=== PATIENT | male | born 1940 | race Caucasian/White ===

== ENCOUNTER 2018-02-15 11:55 | Outpatient (RCR) | payer MEDICARE ==
[~2018-02-15 11:55] MED LIST: ASPI-586 PO; TRAM50TA2 PO; fish oil PO; vitamine D3 PO
== END 2018-05-16 | disposition home or self-care (01) ==
LOC: CARD 11:55
PROVIDERS: ATTEND Internal Medicine Cardiovascular Disease
DX: I45.10 Unspecified right bundle-branch block (principal); I44.4 Left anterior fascicular block; R42 Dizziness and giddiness
CPT/HCPCS: 93225; 93226

== ENCOUNTER 2018-03-09 15:00 | Outpatient (CLI) | payer MEDICARE | END 2018-03-09 15:30 | disposition home or self-care (01) | LOC: SLEEP 15:00 | PROVIDERS: ATTEND Family Medicine | DX: G47.10 Hypersomnia, unspecified (principal); I49.9 Cardiac arrhythmia, unspecified; I10 Essential (primary) hypertension; R06.83 Snoring ==

== ENCOUNTER → 2018-04-07 | Day surgery (SDC) | payer MEDICARE ==
[~2018-04-07] VITALS: Ht 182.9 cm; Wt 95.7 kg
[~2018-04-07] MED LIST changes: +LIDOCAINE 1% INJ 20 ML 20 ML VIAL ONE
[2018-04-07 10:22] VITALS: BP 146/89
--- NOTE | 2018-04-07 11:10 | Implantation of Loop Monitor ---
Implant of Loop Monitior IMPLANTATION OF LOOP MONITOR REPORT DATE OF PROCEDURE: 04/07/18 PREOP DIAGNOSIS: atrial flutter POSTOP DIAGNOSIS: atrial flutter PROCEDURE DETAILS: The patient is a 77 male with history of paroxysmal atrial fibrillation requiring long-term surveillance. Therefore implantable loop recorder was discussed and agreed with the patient. Informed consent was taken. All risks and complications were discussed at length. The patient was draped and prepped in the usual sterile fashion. Local anesthesia was lidocaine, which was given in the substernal area close to the 4th intercostal space. Loop monitor [employer] with serial number [id number] was implanted according to the protocol. Steri-Strips were placed at the end of the procedure. There were no complications and the patient tolerated the procedure well. The device was interrogated with a voltage of. ANESTHESIA: Local anesthesia with lidocaine. COMPLICATIONS: None CONTRAST/FLUOROSCOPY: None CONCLUSION: successful reveal device implantation with no complication FINAL DIAGNOSIS: Chronic atrial flutter Palpitation Dizziness Hypertension MARISOL HARTMANN MD Apr 07, 2018 11:10
--- OUTSIDE RECORDS SUMMARY | 2018-04-07 18:12 | XMS REPORT | Encounter Summary ---
Author Author [facility] Organization [facility] Address Unknown Phone Unavailable Care Team Providers Care Asphalt Tar And Gravel Roofer Name Role Phone Brayan Gonzalez MD Unavailable Wayne Prescott PA-C Unavailable Babs Morris MD PCP Chacha Barker MD Unavailable Encounter Details Date Type Department Care Team Description 03/09/2018 Orders Only [facility] Miryam Mathews MBBS Chronic kidney disease, Physicians - Internal [address] unspecified CKD stage Medicine [address] [facility] [place] [address] Pav[address] Level 4C [phone] [place] [address] Social History Tobacco Use Types Packs/Day Years Used Date Never Smoker Cigars Smokeless Tobacco: Former Chew Quit: User 08/22/2009 Comments: Rare cigar w/ golf game Alcohol Use Drinks/Week oz/Week Comments Yes 15 Standard 7.5 drinks or equivalent Sex Assigned at Date Recorded Not on file as of this encounter Plan of Treatment Not on fileas of this encounter Results * BASIC METABOLIC PANEL (03/07/2018) Sodium 140 OTHER OUTSIDE LAB Potassium 4.1 OTHER OUTSIDE LAB Chloride 105 OTHER OUTSIDE LAB CO2 27 OTHER OUTSIDE LAB Blood Urea Nitrogen 26 OTHER OUTSIDE LAB Creatinine 1.6 (H) OTHER OUTSIDE LAB Glucose 86 OTHER OUTSIDE LAB Calcium 8.8 OTHER OUTSIDE LAB eGFR Non 45 (L) OTHER OUTSIDE LAB eGFR OTHER OUTSIDE LAB Anion Gap OTHER OUTSIDE LAB Specimen Blood - Blood Narrative Performed At Performing Organization Address City/State/Zipcode Phone Number OTHER OUTSIDE LAB in this encounter Visit Diagnoses Diagnosis Chronic kidney disease, unspecified CKD stage
--- OUTSIDE RECORDS SUMMARY | 2018-04-07 18:12 | XMS REPORT | Encounter Summary ---
Author Author [facility] Organization [facility] Address Unknown Phone Unavailable Care Team Providers Care Director Of Graduate Admissions Name Role Phone Brayan Gonzalez MD Unavailable Wayne Prescott PA-C Unavailable Babs Morris MD PCP Chacha Barker MD Unavailable Reason for Visit * Reason Comments Other Lab Results Encounter Details Date Type Department Care Team Description 02/17/2018 Telephone [facility] Miryam Mathews MBBS Other ( Lab Results ) Physicians - Internal [address] [facility] Medicine [address] [place] [address] [phone] [address] [place] [address] Social History Tobacco Use Types Packs/Day Years Used Date Never Smoker Cigars Smokeless Tobacco: Former Chew Quit: User 08/22/2009 Comments: Rare cigar w/ golf game Alcohol Use Drinks/Week oz/Week Comments Yes 15 Standard 7.5 drinks or equivalent Sex Assigned at Date Recorded Not on file as of this encounter Miscellaneous Notes * Telephone Encounter - Mariusz Recio LPN - 02/17/2018 4:03 PM CDT Called patient. Spoke with patient's . She stated patient has not been feeling well lately. Patient has had low BP and elevated pulse. He has also been drinking plenty of water. Patient requested BMP order to be mailed. Ordered BMP. Mailed today. * Telephone Encounter - Mariusz Recio LPN - 02/17/2018 3:59 PM CDT ----- Message from DEBORAH Carvalho sent at 02/17/2018 3:08 PM CDT ----- Cr up to 1.9. Plan to repeat BMP in 2-3 weeks. Please check with him if anything is different. Please also make sure he is avoiding NSAIDs. in this encounter Plan of Treatment Not on [...] Diagnosis Chronic kidney disease, unspecified CKD stage - Primary
--- OUTSIDE RECORDS SUMMARY | 2018-04-07 18:12 | XMS REPORT | Clinical Summary ---
Author Author [facility] Organization [facility] Address Unknown Phone Unavailable Care Team Providers Care Metal Flow Coordinator Name Role Phone Brayan Gonzalez MD Unavailable Wayne Prescott PA-C Unavailable Babs Morris MD PCP Chacha Barker MD Unavailable Source Comments Some departments are not documenting in the electronic medical record. If you do not see the information that you expected, contact Release of Information in the Health Information Management department at [phone] for further assistance in locating additional records.[facility] Allergies No Known Allergies Current Medications Prescription Sig. Disp. Refills Start End Date Status Date diphenhydrAMINE Take 25 mg by mouth at Active (BENADRYL) 25 mg capsule bedtime as needed. cholecalciferol (VITAMIN Take 2,000 Units by mouth Active D) 1,000 units tablet daily. aspirin EC 81 mg tablet Take 81 mg by mouth Active daily. Take with food. Active Problems Problem Noted Date CKD (chronic kidney disease) stage 3, GFR 30-59 ml/min ([facility]) 02/26/2014 Last Assessment & Plan: Continue to f/u w/ [facility]. History of prostate cancer 09/13/2013 Overview: PSA ()=5.3 ng/mL. PNBx (): cT1c; (L) [place]vin 3+4=7, 1/6 cores; (L) [place] 3+3=6, 1/6 cores; Dr. Perez. (B) Nerve Sparing Robotic Asst Lap Prostatectomy (RALP) -- 11/26/2013; Dr. Gonzalez. pT2c Nx Mx, [place] 3+4=7, Margins Negative. L ast Assessment & Plan: PSA reviewed & remains at undetectable level. RTC 1 yr w/ PSA ~ 2-3 hrs prior to appt. Erectile dysfunction following radical prostatectomy Overview: (+)baseline ED prior to prostatectomy. Tried Cialis 5 mg w/o satisfactory results. Tried Viagra 100 mg w/ satisfactory results. L ast Assessment & Plan: No need for additional meds at this time. Obesity (BMI 30-39.9) Renal cyst, left Last Assessment & Plan: Followed by Nephrology. Reviewed US results w/ pt today. Encounters Date Type Specialty Care Team Description 03/09/2018 Orders Only Nephrology Miryam Mathews MBBS Chronic kidney disease, unspecified CKD stage 02/17/2018 Telephone Nephrology Miryam Mathews MBBS Other (Lab Results ) 02/16/2018 Orders Only Nephrology Miryam Mathews MBBS from Last 3 Months Family History Medical History Relation Name Comments Heart Attack Father Cancer Other Cancer Paternal Grandfather Cancer Paternal Grandmother Relation Name Status Comments Father Other Paternal Grandfather Paternal Grandmother Social History Tobacco Use Types Packs/Day Years Used Date Never Smoker Cigars Smokeless Tobacco: Former Chew Quit: User 08/22/2009 Tobacco Cessation: Counseling Given: No Comments: Rare cigar w/ golf game Alcohol Use Drinks/Week oz/Week Comments Yes 15 Standard 7.5 drinks or equivalent Sex Assigned at Date Recorded Not on file Last Filed Vital Signs Vital Sign Reading Time Taken Blood Pressure 111/60 11/28/2017 2:38 PM CDT Pulse 85 11/28/2017 2:38 PM CDT Temperature 36.7 C (98.1 F) 06/02/2017 1:00 PM CDT Respiratory Rate - - Oxygen Saturation 95% 11/27/2013 11:27 AM CDT Inhaled Oxygen - - Concentration Weight 95.7 kg (211 lb) 11/28/2017 2:38 PM CDT Height 182.9 cm (6') 11/28/2017 2:38 PM CDT Body Mass Index 28.62 11/28/2017 2:38 PM CDT Plan of Treatment Health Maintenance Due Date Last Done Comments PHYSICAL (COMPREHENSIVE) 1947 EXAM PERTUSSIS VACCINE 1953 TETANUS VACCINE 1959 COLORECTAL CANCER 1992 SCREENING SHINGLES RECOMBINANT 1992 VACCINE (1 of 2) PNEUMONIA (PCV13/PPSV23) 2007 VACCINES (1 of 2 - PCV13) INFLUENZA VACCINE 05/22/2018 05/27/2010, 05/14/2009, 06/12/2008, Additional history exists Results * BASIC METABOLIC PANEL (03/07/2018) Sodium [...] Address City/State/Zipcode Phone Number OTHER OUTSIDE LAB * 25-OH VITAMIN D (D2 + D3) (02/01/2018) Vitamin D(25-OH)Total 55.23 [facility] Specimen Blood - Blood Narrative Performed At Performing Organization Address City/State/Zipcode Phone Number IN CLINIC * CBC AND DIFF (02/01/2018) White Blood Cells 5.99 [facility] RBC 4.17 [facility] Hemoglobin 13.6 [facility] Hematocrit 41.3 [facility] MCV 99.0 [facility] MCH 32.6 [facility] MCHC 32.9 [facility] Platelet Count 235 [facility] RDW 13.3 [facility] Neutrophils 59.7 [facility] Absolute Neutrophil Count 3.57 [facility] Lymphocytes 26.9 [facility] Absolute Lymph Count 1.61 [facility] Monocytes 9.3 [facility] Absolute Monocyte Count 0.6 [facility] Eosinophil 3.3 [facility] Absolute Eosinophil Count 0.2 [facility] Basophils 0.8 [facility] Absolute Basophil Count 0.1 [facility] Specimen Blood - Blood Narrative Performed At Performing Organization Address City/State/Zipcode Phone Number IN CLINIC * COMPREHENSIVE METABOLIC PANEL (02/01/2018) Sodium 139 [facility] Potassium 4.0 [facility] Chloride 102 [facility] CO2 29.0 [facility] Blood Urea Nitrogen 28 [facility] Creatinine 1.9 [facility] Glucose 102 [facility] Calcium 9.1 [facility] Total Protein 6.8 [facility] Total Bilirubin 0.6 [facility] Albumin 4.1 [facility] Alk Phosphatase 49 [facility] AST (SGOT) 29 [facility] ALT (SGPT) 29 [facility] eGFR Non 38 [facility] eGFR [facility] Anion Gap 12 [facility] Specimen Blood - Blood Narrative Performed At Performing Organization Address City/State/Zipcode Phone Number IN CLINIC from Last 3 Months
--- OUTSIDE RECORDS SUMMARY | 2018-04-07 18:12 | XMS REPORT | Encounter Summary ---
Author Author [facility] Organization [facility] Address Unknown Phone Unavailable Care Team Providers Care Geothermal System Installer Name Role Phone Brayan Gonzalez MD Unavailable Wayne Prescott PA-C Unavailable Babs Morris MD PCP Chacha Barker MD Unavailable Encounter Details Date Type Department Care Team Description 02/16/2018 Orders Only [facility] Miryam Mathews MBBS Physicians - Internal [address] [facility] [address] [place] [address] [phone] [address] [facility] [place] [address] Social History Tobacco Use Types Packs/Day Years Used Date Never Smoker Cigars Smokeless Tobacco: Former Chew Quit: User 08/22/2009 Comments: Rare cigar w/ golf game Alcohol Use Drinks/Week oz/Week Comments Yes 15 Standard 7.5 drinks or equivalent Sex Assigned at Date Recorded Not on file as of this encounter Plan of Treatment Not on fileas of this encounter Results * CBC AND DIFF (02/01/2018) White Blood [...] Address City/State/Zipcode Phone Number IN CLINIC * 25-OH VITAMIN D (D2 + D3) [...] Organization Address City/State/Zipcode Phone Number IN CLINIC in this encounter Visit Diagnoses Not on filein this encounter
--- OUTSIDE RECORDS SUMMARY | 2018-04-07 18:13 | XMS REPORT | CCD ---
Author Author Babs Morris MD, [facility] Address [address] [place] [address] Phone Care Team Providers Care Respiratory Physician Name Role Phone PP Unavailable CCM Unavailable Summary Purpose Interface Exchange Insurance Providers Payer name Policy type / Coverage type Covered republican ID Effective Begin Date Effective End Date WPS Medicare Part B Medicare Part B [id number] Unknown [facility] Medicare Part B [id number] Unknown Family history Son Diagnosis Age At Onset Depression Unknown Father Diagnosis Age At Onset No Family Disease Entered N/A Runs in the family Diagnosis Age At Onset No Family Disease Entered N/A Social History Social History Element Codes Description Effective Dates Marital status Unknown 09/08/2011 Number of children Unknown 3 09/08/2011 Employment Unknown 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 09/08/[address]: 2744751 Quit less than 5 years ago quit using snuff in June 2010 09/08/2011 Allergies, Adverse Reactions, Alerts Allergies, Adverse Reactions, Alerts data not found Past Medical History Illness Codes Condition Status Onset Date Resolved Date Mixed hyperlipidemia ICD-9: 272.2 ICD-10: E78.2 Active 03/07/2017 Unknown Personal history of malignant neoplasm of prostate ICD-9: V10.46 ICD-10: Z85.46 Active 09/08/2017 Unknown Vitamin D deficiency, unspecified ICD-9: 268.9 ICD-10: E55.9 Active 03/07/2017 Unknown Actinic keratosis ICD- 9: 702.0 ICD-10: L57.0 Active 03/07/2017 Unknown Encounter for general adult medical examination without abnormal findings ICD-9: V70.0 ICD-10: Z00.00 Active 10/02/2014 Unknown Inflamed seborrheic keratosis ICD-9: 702.11 ICD-10: L82.0 Active 09/07/2016 Unknown Encounter for general adult medical examination with abnormal findings ICD-9: V70.0 ICD-10: Z00.01 Active 10/02/2014 Unknown Encounter for immunization ICD-9: V06.6 ICD-10: Z23 Active 09/07/2015 Unknown Irritated nevus of left upper arm ICD-9: 216.6 Active 2014 Unknown Routine medical exam ICD-9: V70.0 Active 10/02/2014 Unknown Hyperlipidemia Unknown Active 02/14/2013 Unknown Hypertension Unknown Active 02/14/2013 Unknown Elevated PSA measurement ICD-9: 790.93 Active 02/14/2013 Unknown HYPERLIPIDEMIA ICD-9: 272.4 Active 02/14/2013 Unknown Blood glucose elevated ICD-9: 790.29 Active 02/12/2013 Unknown Prostate cancer screening ICD-9: V76.44 Active 02/12/2013 Unknown ACUTE URI ICD-9: 465.9 Active 07/25/2012 Unknown Actinic keratosis ICD- 9: 702.0 Active 01/26/2012 Unknown Renal insufficiency ICD-9: 593.9 Active 01/26/2012 Unknown Changing mole ICD-9: 216.9 Active 09/14/2011 Unknown Seborrheic keratosis, inflamed ICD-9: 702.11 Active 09/14/2011 Unknown Cough ICD-9: 786.2 Active 09/08/2011 Unknown HEARING LOSS ICD-9: 389.9 Active 09/08/2011 Unknown Impacted cerumen ICD-9 : 380.4 Active 09/08/2011 Unknown Lumbago ICD-9: 724.2 Active 09/08/2011 Unknown Overweight ICD-9: 278.02 Active 09/08/2011 Unknown PITYRIASIS VERSICOLOR ICD-9: 111.0 Active 09/08/2011 Unknown Skin lesions, generalized ICD-9: 709.9 Active 09/08/2011 Unknown Problems Condition Codes Effective Dates Condition Status Mixed hyperlipidemia ICD-9: 272.2 ICD-10: E78.2 03/07/2017 Active Personal history of malignant neoplasm of prostate ICD-9: V10.46 ICD-10: Z85.46 09/08/2017 Active Vitamin D deficiency, unspecified ICD-9: 268.9 ICD-10: E55.9 03/07/2017 Active Actinic keratosis ICD- 9: 702.0 ICD-10: L57.0 03/07/2017 Active Encounter for general adult medical examination without abnormal findings ICD-9: V70.0 ICD-10: Z00.00 10/02/2014 Active Inflamed seborrheic keratosis ICD-9: 702.11 ICD-10: L82.0 09/07/2016 Active Encounter for general adult medical examination with abnormal findings ICD-9: V70.0 ICD-10: Z00.01 10/02/2014 Active Encounter for immunization ICD-9: V06.6 ICD-10: Z23 09/07/2015 Active Irritated nevus of left upper arm ICD-9: 216.6 10/15/2014 Active Routine medical exam ICD-9: V70.0 10/02/2014 Active Hyperlipidemia Unknown 02/14/2013 Active Hypertension Unknown 02/14/2013 Active Elevated PSA measurement ICD-9: 790.93 02/14/2013 Active HYPERLIPIDEMIA ICD-9: 272.4 02/14/2013 Active Blood glucose elevated ICD-9: 790.29 02/12/2013 Active Prostate cancer screening ICD-9: V76.44 02/12/2013 Active ACUTE URI ICD-9: 465.9 07/25/2012 Active Actinic keratosis ICD- 9: 702.0 01/26/2012 Active Renal insufficiency ICD-9: 593.9 01/26/2012 Active Changing mole ICD-9: 216.9 09/14/2011 Active Seborrheic keratosis, inflamed ICD-9: 702.11 09/14/2011 Active Cough ICD-9: 786.2 09/08/2011 Active HEARING LOSS ICD-9: 389.9 09/08/2011 Active Impacted cerumen ICD-9 : 380.4 09/08/2011 Active Lumbago ICD-9: 724.2 09/08/2011 Active Overweight ICD-9: 278.02 09/08/2011 Active PITYRIASIS VERSICOLOR ICD-9: 111.0 09/08/2011 Active Skin lesions, generalized ICD-9: 709.9 09/08/2011 Active Medications Medication Codes Instructions Start Date Stop Date Status Fill Instructions Efudex 5 % topical cream RxNorm: 344557 1 Application TOP BID 03/07/2017 03/16/2017 Inactive triamcinolone acetonide 0.1 % topical ointment RxNorm: 8864358 1 Application TOP TID 09/07/2016 09/20/2016 Inactive triamcinolone acetonide 0.1 % topical ointment RxNorm: 1360742 1 Application TOP TID 09/07/2016 09/06/2016 Inactive fluorouracil 5 % topical cream RxNorm: 838384 TOP BID to affected area x 14 days 10/16/2014 10/15/2014 Inactive fluorouracil 5 % topical cream RxNorm: 590633 TOP BID to affected area x 14 days 10/16/2014 10/29/2014 Inactive ivermectin 3 mg tablet RxNorm: 978593 7 Tablet(s) PO daily may repeat on day 8 if needed 03/31/2012 03/30/2012 Inactive ivermectin 3 mg tablet RxNorm: 490978 7 Tablet(s) PO daily may repeat on day 8 if needed 03/31/2012 03/31/2012 Inactive ketoconazole 2 % Shampoo RxNorm: 217730 1 Application TOP TIW apply from head to toe, leave on for 5 minutes, then wash off, do three times a week x 2 weeks. 09/14/2011 09/27/2011 Inactive ketoconazole 2 % Shampoo RxNorm: 905195 1 Application TOP TIW apply from head to toe, leave on for 5 minutes, then wash off, do three times a week x 2 weeks. 09/08/2011 09/13/2011 Inactive Sleep Easy oral RxNorm : 42983 oral No Start Date Active Vitamin D3 oral RxNorm : 2418 oral No Start Date Active Zithromax Z-Naveen 250 mg tablet RxNorm: 979442 Tablet(s) PO No Start Date 01/17/2013 Inactive Fish Oil Oral RxNorm: Oral No Start Date Inactive aspirin 81 mg Cap, Delayed Release RxNorm: 657568 1 Capsule(s) PO daily No Start Date 08/27/2013 Inactive Medication Administered No Medication Administered data Immunizations Vaccine Codes Date Status Pneumococcal CVX: 133 06/17/2016 completed Tetanus, Diptheria, Pertussis CVX: 113 completed Tetanus/Diptheria CVX: 113 06/17/2016 completed Zoster CVX: 121 03/03/2016 completed Pneumococcal (Adult) CVX: 133 09/08/2015 completed Influenza CVX: 141 06/05/2013 completed Influenza CVX: 141 08/31/2012 completed Assessments Condition Codes Effective Dates Personal history of malignant neoplasm of prostate ICD-10: Z85.46 ICD-9: V10.46 09/08/2017 Vitamin D deficiency, unspecified ICD-10: E55.9 ICD-9: 268.9 09/08/2017 Mixed hyperlipidemia ICD-10: E78.2 ICD-9: 272.2 09/08/2017 Actinic keratosis ICD-10: L57.0 ICD-9: 702.0 03/07/2017 Inflamed seborrheic keratosis ICD-10: L82.0 ICD-9: 702.11 09/07/2016 Encounter for general adult medical examination without abnormal findings ICD-10: Z00.00 ICD-9: V70.0 09/07/2016 Encounter for general adult medical examination with abnormal findings ICD-10: Z00.01 ICD-9: V70.0 09/08/2015 Encounter for immunization ICD-10: Z23 ICD-9: V06.6 09/08/2015 Irritated nevus of left upper arm ICD-9: 216.6 10/15/2014 Routine medical exam ICD-9: V70.0 2014 HYPERLIPIDEMIA ICD-9: 272.4 08/28/2013 Elevated PSA ICD-9: 790.93 08/28/2013 BENIGN RUSS SKIN ICD-9: 216.9 02/16/2013 SKIN DISORDER ICD-9: 709.9 02/14/2013 HEARING LOSS ICD-9: 389.9 02/14/2013 RENAL & URETERAL DIS NOS ICD-9: 593.9 Prostate cancer screening ICD-9: V76.44 02/12/2013 Blood glucose elevated ICD-9: 790.29 ACUTE URI ICD-9: 465.9 07/25/2012 Actinic keratosis ICD-9: 702.0 2011 Seborrheic keratosis, inflamed ICD-9: 702.11 09/14/2011 Impacted cerumen ICD-9: 380.4 09/08/2011 Overweight ICD-9: 278.02 09/08/2011 Lumbago ICD-9: 724.2 09/08/2011 PITYRIASIS VERSICOLOR ICD-9: 111.0 2011 Cough ICD-9: 786.2 09/08/2011 Reason For Visit Reason For Visit Effective Dates Notes hyperlipidemia 09/08/2017 hyperlipidemia 03/07/2017 well man exam (65+ years) 09/07/2016 skin lesion 03/08/2016 cough 09/08/2015 office procedure 10/15/2014 here for skin lesion removal and biopsy of area. hyperlipidemia 10/02/2014 Right arm deltoid area hyperlipidemia 08/28/2013 skin lesion 02/16/2013 hyperlipidemia 02/14/2013 hoarseness 07/25/2012 skin lesion 01/26/2012 on neck behind right ear, pt states that it itches, is painful, and his fontana hits it when he cuts his hair skin lesion 09/14/2011 dyspnea 09/08/2011 Results No Results data Review of Systems System Result Effective Dates Constitutional No night sweats 2017 Constitutional No chills 09/08/2017 Constitutional No fever 09/08/2017 Eyes No vision change 09/08/2017 Ears/Nose/Throat/Neck No dizziness 2017 Ears/Nose/Throat/Neck No headache 2017 Ears/Nose/Throat/Neck hearing loss 2017 Cardiovascular No chest pain/pressure Respiratory No cough 09/08/2017 Gastrointestinal No abdominal pain 2017 Gastrointestinal No constipation 2017 Gastrointestinal No diarrhea 09/08/2017 Genitourinary/Nephrology No urinary urgency 09/08/2017 Genitourinary/Nephrology No urinary incontinence 09/08/2017 Musculoskeletal No stiffness 09/08/2017 Musculoskeletal No arthralgia(s) 2017 Dermatologic rash 09/08/2017 Dermatologic No scar 09/08/2017 Neurologic No dyskinesia or tremor 2017 Psychiatric No anxiety 09/08/2017 Constitutional No night sweats 2016 Constitutional No chills 03/07/2017 Constitutional No fever 03/07/2017 Eyes No vision change 03/07/2017 Ears/Nose/Throat/Neck No dizziness 2016 Ears/Nose/Throat/Neck No headache 2016 Ears/Nose/Throat/Neck hearing loss 2016 Cardiovascular No chest pain/pressure Respiratory No cough 03/07/2017 Gastrointestinal No abdominal pain 2016 Gastrointestinal No constipation 2016 Gastrointestinal No diarrhea 03/07/2017 Genitourinary/Nephrology No urinary urgency 03/07/2017 Genitourinary/Nephrology No urinary incontinence 03/07/2017 Musculoskeletal No stiffness 03/07/2017 Musculoskeletal No arthralgia(s) 2016 Dermatologic rash 03/07/2017 Dermatologic No scar 03/07/2017 Neurologic No dyskinesia or tremor 2016 Psychiatric No anxiety 03/07/2017 Constitutional No night sweats 2016 Constitutional No chills 09/07/2016 Constitutional No fever 09/07/2016 Eyes No vision change 09/07/2016 Ears/Nose/Throat/Neck No dizziness 2016 Ears/Nose/Throat/Neck No headache 2016 Ears/Nose/Throat/Neck hearing loss 2016 Cardiovascular No chest pain/pressure Respiratory No cough 09/07/2016 Gastrointestinal No abdominal pain 2016 Gastrointestinal No constipation 2016 Gastrointestinal No diarrhea 09/07/2016 Musculoskeletal No stiffness 09/07/2016 Musculoskeletal No arthralgia(s) 2016 Neurologic No dyskinesia or tremor 2016 Psychiatric No anxiety 09/07/2016 Dermatologic rash 09/07/2016 Dermatologic No scar 09/07/2016 Genitourinary/Nephrology No urinary urgency 09/07/2016 Genitourinary/Nephrology No urinary incontinence 09/07/2016 Constitutional No night sweats 2015 Constitutional No chills 03/08/2016 Constitutional No fever 03/08/2016 Eyes No vision change 03/08/2016 Ears/Nose/Throat/Neck No dizziness 2015 Ears/Nose/Throat/Neck No headache 2015 Ears/Nose/Throat/Neck hearing loss 2015 Cardiovascular No chest pain/pressure Respiratory No cough 03/08/2016 Gastrointestinal No abdominal pain 2015 Gastrointestinal No constipation 2015 Gastrointestinal No diarrhea 03/08/2016 Musculoskeletal No stiffness 03/08/2016 Musculoskeletal No arthralgia(s) 2015 Dermatologic mole change 03/08/2016 Dermatologic No rash 03/08/2016 Dermatologic No scar 03/08/2016 Neurologic No dyskinesia or tremor 2015 Psychiatric No anxiety 03/08/2016 Constitutional No night sweats 2015 Constitutional No chills 09/08/2015 Constitutional No fever 09/08/2015 Eyes No vision change 09/08/2015 Ears/Nose/Throat/Neck No dizziness 2015 Ears/Nose/Throat/Neck No headache 2015 Ears/Nose/Throat/Neck hearing loss 2015 Cardiovascular No chest pain/pressure Respiratory cough 09/08/2015 Gastrointestinal No abdominal pain 2015 Gastrointestinal No constipation 2015 Gastrointestinal No diarrhea 09/08/2015 Musculoskeletal No stiffness 09/08/2015 Musculoskeletal No arthralgia(s) 2015 Dermatologic mole change 09/08/2015 Dermatologic No rash 09/08/2015 Dermatologic No scar 09/08/2015 Neurologic No dyskinesia or tremor 2015 Psychiatric No anxiety 09/08/2015 Ears/Nose/Throat/Neck sore throat 2015 Constitutional No recent illness 2014 Constitutional No chills 10/15/2014 Constitutional No fatigue 10/15/2014 Constitutional No fever 10/15/2014 Constitutional No insomnia 10/15/2014 Constitutional No malaise 10/15/2014 Psychiatric No anxiety 10/15/2014 Psychiatric No depression 10/15/2014 Dermatologic mole change 10/15/2014 Constitutional No night sweats 2014 Constitutional No chills 10/02/2014 Constitutional No fever 10/02/2014 Eyes No vision change 10/02/2014 Ears/Nose/Throat/Neck No dizziness 2014 Ears/Nose/Throat/Neck No headache 2014 Ears/Nose/Throat/Neck hearing loss 2014 Cardiovascular No chest pain/pressure 06/2015 Respiratory No cough 10/02/2014 Gastrointestinal No abdominal pain 2014 Gastrointestinal No constipation 2014 Gastrointestinal No diarrhea 10/02/2014 Musculoskeletal No stiffness 10/02/2014 Musculoskeletal No arthralgia(s) 2014 Neurologic No dyskinesia or tremor 2014 Psychiatric No anxiety 10/02/2014 Dermatologic No rash 10/02/2014 Dermatologic No scar 10/02/2014 Dermatologic mole change 10/02/2014 Constitutional No night sweats 2013 Constitutional No chills 08/28/2013 Constitutional No fever 08/28/2013 Eyes No vision change 08/28/2013 Ears/Nose/Throat/Neck No dizziness 2013 Ears/Nose/Throat/Neck No headache 2013 Ears/Nose/Throat/Neck hearing loss 2013 Cardiovascular No chest pain/pressure 02/2014 Respiratory No cough 08/28/2013 Gastrointestinal No abdominal pain 2013 Gastrointestinal No constipation 2013 Gastrointestinal No diarrhea 08/28/2013 Musculoskeletal No stiffness 08/28/2013 Musculoskeletal No arthralgia(s) 2013 Neurologic No dyskinesia or tremor 2013 Psychiatric No anxiety 08/28/2013 Constitutional No night sweats 2012 Constitutional No chills 02/16/2013 Constitutional No fever 02/16/2013 Cardiovascular No chest pain/pressure Respiratory No cough 02/16/2013 Neurologic No dyskinesia or tremor 2012 Psychiatric No anxiety 02/16/2013 Constitutional No night sweats 2012 Constitutional No chills 02/14/2013 Constitutional No fever 02/14/2013 Cardiovascular No chest pain/pressure Respiratory No cough 02/14/2013 Gastrointestinal No abdominal pain 2012 Gastrointestinal No constipation 2012 Gastrointestinal No diarrhea 02/14/2013 Musculoskeletal No stiffness 02/14/2013 Musculoskeletal No arthralgia(s) 2012 Neurologic No dyskinesia or tremor 2012 Psychiatric No anxiety 02/14/2013 Eyes No vision change 02/14/2013 Ears/Nose/Throat/Neck hearing loss 2012 Ears/Nose/Throat/Neck No headache 2012 Ears/Nose/Throat/Neck No dizziness 2012 Constitutional recent illness 07/25/2012 Constitutional No anorexia 07/25/2012 Constitutional No night sweats 2011 Constitutional No chills 07/25/2012 Constitutional No diaphoresis 07/25/2012 Constitutional No fatigue 07/25/2012 Constitutional No fever 07/25/2012 Constitutional No insomnia 07/25/2012 Eyes No eye discharge 07/25/2012 Eyes No eye erythema 07/25/2012 Ears/Nose/Throat/Neck No dizziness 2011 Ears/Nose/Throat/Neck No headache 2011 Ears/Nose/Throat/Neck nasal discharge 11/2011 Ears/Nose/Throat/Neck No otalgia 2011 Ears/Nose/Throat/Neck No sore throat 11/2011 Gastrointestinal No nausea 07/25/2012 Gastrointestinal No abdominal pain 2011 Gastrointestinal No constipation 2011 Gastrointestinal No diarrhea 07/25/2012 Gastrointestinal No vomiting 07/25/2012 Genitourinary/Nephrology No dysuria 07/25 Cardiovascular No chest pain/pressure 11/2011 Cardiovascular No dyspnea 07/25/2012 Constitutional No night sweats 2011 Constitutional No chills 01/26/2012 Constitutional No fever 01/26/2012 Cardiovascular No chest pain/pressure 01/2012 Respiratory No cough 01/26/2012 Neurologic No dyskinesia or tremor 2011 Psychiatric No anxiety 01/26/2012 Gastrointestinal No abdominal pain 2011 Gastrointestinal No constipation 2011 Gastrointestinal No diarrhea 01/26/2012 Musculoskeletal No stiffness 01/26/2012 Musculoskeletal No arthralgia(s) 2011 Constitutional No night sweats 2011 Constitutional No chills 09/14/2011 Constitutional No fever 09/14/2011 Cardiovascular No chest pain/pressure Respiratory No cough 09/14/2011 Neurologic No dyskinesia or tremor 2011 Psychiatric No anxiety 09/14/2011 Constitutional No fatigue 09/08/2011 Constitutional No fever 09/08/2011 Ears/Nose/Throat/Neck hearing loss 2011 Genitourinary/Nephrology No urinary urgency 09/08/2011 Genitourinary/Nephrology urinary retention/hesitancy 09/08/2011 Genitourinary/Nephrology No urinary frequency 09/08/2011 Genitourinary/Nephrology No urinary incontinence 09/08/2011 Genitourinary/Nephrology No dysuria 09/08 Genitourinary/Nephrology No hematuria Eyes No vision change 09/08/2011 Cardiovascular No chest pain/pressure Cardiovascular dyspnea 09/08/2011 Cardiovascular No edema 09/08/2011 Cardiovascular exercise intolerance 09/08 Cardiovascular fatigue 09/08/2011 Gastrointestinal No abdominal pain 2011 Gastrointestinal No constipation 2011 Gastrointestinal No diarrhea 09/08/2011 Dermatologic rash 09/08/2011 Dermatologic sores 09/08/2011 Neurologic No ataxia 09/08/2011 Neurologic No dizziness 09/08/2011 Neurologic hearing loss 09/08/2011 Neurologic No memory loss 09/08/2011 Neurologic pain, back 09/08/2011 Psychiatric No anxiety 09/08/2011 Psychiatric No depression 09/08/2011 Endocrine No cold sensitivity 09/08/2011 Endocrine No dry or coarse skin 2011 Hematologic/Lymphatic No abnormal bleeding and bruising 09/08/2011 Physical Exam Exam Name System Name Item Name Status Result Effective Dates Notes Full Exam - General 1994 Constitutional general appearance Overall: well developed 09/08/2017 None Full Exam - General 1994 Constitutional general appearance Overall: in no acute distress 09/08/2017 None Full Exam - General 1994 Constitutional general appearance Overall: well nourished 09/08/2017 None Full Exam - General 1994 Eyes conjunctiva /eyelids Overall: conjunctiva clear 09/08/2017 None Full Exam - General 1994 Eyes conjunctiva /eyelids Overall: eyelids normal 09/08/2017 None Full Exam - General 1994 Eyes pupils and irises Overall: pupils equal, round, reactive to light and accomodation 09/08/2017 None Full Exam - General 1994 Ears/Nose/Throat external ear Auricle: a normal exam 09/08/2017 None Full Exam - General 1994 Ears/Nose/Throat external ear Auricle: lesion 09/08/2017 dry white patching to the outer left auricle, nontender Full Exam - General 1994 Ears/Nose/Throat external ear Auricle: nontender 09/08/2017 None Full Exam - General 1994 Ears/Nose/Throat external nose Overall: benign appearance 09/08/2017 None Full Exam - General 1994 Ears/Nose/Throat hearing assessment Gross exam: diminished to whisper 09/08/2017 None Full Exam - General 1994 Ears/Nose/Throat lips/teeth/gingiva Overall: benign lips 09/08/2017 None Full Exam - General 1994 Ears/Nose/Throat lips/teeth/gingiva Overall: normal dentition 09/08/2017 None Full Exam - General 1994 Ears/Nose/Throat lips/teeth/gingiva Overall: no masses 09/08/2017 pt with a very small posterior airway opening - long upper palate and large tongue base Full Exam - General 1994 Ears/Nose/Throat oral cavity/pharynx/larynx Overall: oral mucosa clear 09/08/2017 None Full Exam - General 1994 Ears/Nose/Throat oral cavity/pharynx/larynx Overall: mobile tongue benign 09/08/2017 None Full Exam - General 1994 Ears/Nose/Throat oral cavity/pharynx/larynx Overall: hard palate benign 09/08/2017 None Full Exam - General 1994 Ears/Nose/Throat oral cavity/pharynx/larynx Overall: oropharyngeal mucosa clear 09/08/2017 None Full Exam - General 1994 Ears/Nose/Throat oral cavity/pharynx/larynx Overall: no masses 09/08/2017 None Full Exam - General 1994 Ears/Nose/Throat oral cavity/pharynx/larynx Mobile tongue: a normal exam 09/08/2017 None Full Exam - General 1994 Respiratory auscultation Overall: breath sounds clear bilaterally 09/08/2017 None Full Exam - General 1994 Respiratory respiratory effort/rhythm Overall: no retractions 09/08/2017 None Full Exam - General 1994 Respiratory respiratory effort/rhythm Overall: normal rate 09/08/2017 None Full Exam - General 1994 Cardiovascular extremities Overall: no clubbing 09/08/2017 None Full Exam - General 1994 Cardiovascular auscultation of heart Rate: regular rate 09/08/2017 None Full Exam - General 1994 Cardiovascular auscultation of heart Rhythm: regular rhythm 09/08/2017 None Full Exam - General 1994 Cardiovascular auscultation of heart Murmur: no murmur 09/08/2017 None Full Exam - General 1994 Abdomen abdominal exam Overall: no tenderness 09/08/2017 None Full Exam - General 1994 Abdomen abdominal exam Overall: normal bowel sounds 09/08/2017 None Full Exam - General 1994 Lymphatic neck nodes Overall: anterior cervical chain benign 09/08/2017 None Full Exam - General 1994 Lymphatic neck nodes Overall: posterior cervical chain benign 09/08/2017 None Full Exam - General 1994 Musculoskeletal head and neck Overall: head atraumatic 09/08/2017 None Full Exam - General 1994 Musculoskeletal head and neck Overall: cervical spine benign 09/08/2017 None Full Exam - General 1994 Integument inspection of skin Location: left arm 09/08/2017 None Full Exam - General 1994 Integument inspection of skin Location: right arm 09/08/2017 None Full Exam - General 1994 Integument inspection of skin Location: left leg 09/08/2017 None Full Exam - General 1994 Integument inspection of skin Location: right leg 09/08/2017 None Full Exam - General 1994 Neurologic gait Overall: no ataxia, no unsteadiness 09/08/2017 None Full Exam - General 1994 Neurologic cranial nerves Overall: crainial nerves 2 - 12 grossly intact 09/08/2017 None Full Exam - General 1994 Psychiatric orientation/consciousness Overall: oriented to person, place and time 09/08/2017 None Full Exam - General 1994 Psychiatric mood and affect Overall: normal mood and affect 09/08/2017 None Full Exam - General 1994 Psychiatric appearance Overall: well-groomed, good eye contact 09/08/2017 None Full Exam - General 1994 Psychiatric judgment/insight Overall: judgment and insight intact 09/08/2017 None Full Exam - General 1994 Constitutional general appearance Overall: well developed 03/07/2017 None Full Exam - General 1994 Constitutional general appearance Overall: in no acute distress 03/07/2017 None Full Exam - General 1994 Constitutional general appearance Overall: well nourished 03/07/2017 None Full Exam - General 1994 Eyes conjunctiva /eyelids Overall: conjunctiva clear 03/07/2017 None Full Exam - General 1994 Eyes conjunctiva /eyelids Overall: eyelids normal 03/07/2017 None Full Exam - General 1994 Eyes pupils and irises Overall: pupils equal, round, reactive to light and accomodation 03/07/2017 None Full Exam - General 1994 Ears/Nose/Throat external ear Auricle: a normal exam 03/07/2017 None Full Exam - General 1994 Ears/Nose/Throat external ear Auricle: lesion 03/07/2017 dry white patching to the outer left auricle, nontender Full Exam - General 1994 Ears/Nose/Throat external ear Auricle: nontender 03/07/2017 None Full Exam - General 1994 Ears/Nose/Throat external nose Overall: benign appearance 03/07/2017 None Full Exam - General 1994 Ears/Nose/Throat hearing assessment Gross exam: diminished to whisper 03/07/2017 None Full Exam - General 1994 Ears/Nose/Throat lips/teeth/gingiva Overall: benign lips 03/07/2017 None Full Exam - General 1994 Ears/Nose/Throat lips/teeth/gingiva Overall: normal dentition 03/07/2017 None Full Exam - General 1994 Ears/Nose/Throat lips/teeth/gingiva Overall: no masses 03/07/2017 pt with a very small posterior airway opening - long upper palate and large tongue base Full Exam - General 1995 Ears/Nose/Throat oral cavity/pharynx/larynx Overall: oral mucosa clear 03/07/2017 None Full Exam - General 1995 Ears/Nose/Throat oral cavity/pharynx/larynx Overall: mobile tongue benign 03/07/2017 None Full Exam - General 1994 Ears/Nose/Throat oral cavity/pharynx/larynx Overall: hard palate benign 03/07/2017 None Full Exam - General 1994 Ears/Nose/Throat oral cavity/pharynx/larynx Overall: oropharyngeal mucosa clear 03/07/2017 None Full Exam - General 1994 Ears/Nose/Throat oral cavity/pharynx/larynx Overall: no masses 03/07/2017 None Full Exam - General 1994 Ears/Nose/Throat oral cavity/pharynx/larynx Mobile tongue: a normal exam 03/07/2017 None Full Exam - General 1994 Respiratory auscultation Overall: breath sounds clear bilaterally 03/07/2017 None Full Exam - General 1994 Respiratory respiratory effort/rhythm Overall: no retractions 03/07/2017 None Full Exam - General 1994 Respiratory respiratory effort/rhythm Overall: normal rate 03/07/2017 None Full Exam - General 1994 Cardiovascular extremities Overall: no clubbing 03/07/2017 None Full Exam - General 1994 Cardiovascular auscultation of heart Rate: regular rate 03/07/2017 None Full Exam - General 1994 Cardiovascular auscultation of heart Rhythm: regular rhythm 03/07/2017 None Full Exam - General 1994 Cardiovascular auscultation of heart Murmur: no murmur 03/07/2017 None Full Exam - General 1994 Abdomen abdominal exam Overall: no tenderness 03/07/2017 None Full Exam - General 1994 Abdomen abdominal exam Overall: normal bowel sounds 03/07/2017 None Full Exam - General 1994 Musculoskeletal head and neck Overall: head atraumatic 03/07/2017 None Full Exam - General 1994 Musculoskeletal head and neck Overall: cervical spine benign 03/07/2017 None Full Exam - General 1994 Neurologic gait Overall: no ataxia, no unsteadiness 03/07/2017 None Full Exam - General 1994 Neurologic cranial nerves Overall: crainial nerves 2 - 12 grossly intact 03/07/2017 None Full Exam - General 1994 Psychiatric orientation/consciousness Overall: oriented to person, place and time 03/07/2017 None Full Exam - General 1994 Psychiatric mood and affect Overall: normal mood and affect 03/07/2017 None Full Exam - General 1994 Psychiatric appearance Overall: well-groomed, good eye contact 03/07/2017 None Full Exam - General 1994 Psychiatric judgment/insight Overall: judgment and insight intact 03/07/2017 None Full Exam - General 1994 Lymphatic neck nodes Overall: anterior cervical chain benign 03/07/2017 None Full Exam - General 1994 Lymphatic neck nodes Overall: posterior cervical chain benign 03/07/2017 None Full Exam - General 1994 Integument inspection of skin Location: right arm 03/07/2017 None Full Exam - General 1994 Integument inspection of skin Location: left arm 03/07/2017 None Full Exam - General 1994 Integument inspection of skin Location: left leg 03/07/2017 None Full Exam - General 1994 Integument inspection of skin Location: right leg 03/07/2017 None Full Exam - General 1994 Constitutional general appearance Overall: well developed 09/07/2016 None Full Exam - General 1994 Constitutional general appearance Overall: in no acute distress 09/07/2016 None Full Exam - General 1994 Constitutional general appearance Overall: well nourished 09/07/2016 None Full Exam - General 1994 Eyes conjunctiva /eyelids Overall: conjunctiva clear 09/07/2016 None Full Exam - General 1994 Eyes conjunctiva /eyelids Overall: eyelids normal 09/07/2016 None Full Exam - General 1994 Eyes pupils and irises Overall: pupils equal, round, reactive to light and accomodation 09/07/2016 None Full Exam - General 1994 Ears/Nose/Throat external ear Auricle: a normal exam 09/07/2016 None Full Exam - General 1994 Ears/Nose/Throat external ear Auricle: lesion 09/07/2016 dry white patching to the outer left auricle, nontender Full Exam - General 1994 Ears/Nose/Throat external ear Auricle: nontender 09/07/2016 None Full Exam - General 1994 Ears/Nose/Throat external nose Overall: benign appearance 09/07/2016 None Full Exam - General 1994 Ears/Nose/Throat hearing assessment Gross exam: diminished to whisper 09/07/2016 None Full Exam - General 1994 Ears/Nose/Throat lips/teeth/gingiva Overall: benign lips 09/07/2016 None Full Exam - General 1994 Ears/Nose/Throat lips/teeth/gingiva Overall: normal dentition 09/07/2016 None Full Exam - General 1994 Ears/Nose/Throat lips/teeth/gingiva Overall: no masses 09/07/2016 pt with a very small posterior airway opening - long upper palate and large tongue base Full Exam - General 1994 Ears/Nose/Throat oral cavity/pharynx/larynx Overall: oral mucosa clear 09/07/2016 None Full Exam - General 1994 Ears/Nose/Throat oral cavity/pharynx/larynx Overall: mobile tongue benign 09/07/2016 None Full Exam - General 1994 Ears/Nose/Throat oral cavity/pharynx/larynx Overall: hard palate benign 09/07/2016 None Full Exam - General 1994 Ears/Nose/Throat oral cavity/pharynx/larynx Overall: oropharyngeal mucosa clear 09/07/2016 None Full Exam - General 1994 Ears/Nose/Throat oral cavity/pharynx/larynx Overall: no masses 09/07/2016 None Full Exam - General 1994 Ears/Nose/Throat oral cavity/pharynx/larynx Mobile tongue: a normal exam 09/07/2016 None Full Exam - General 1994 Neck inspection of neck Overall: no carotid bruits 09/07/2016 None Full Exam - General 1994 Respiratory auscultation Overall: breath sounds clear bilaterally 09/07/2016 None Full Exam - General 1994 Respiratory respiratory effort/rhythm Overall: no retractions 09/07/2016 None Full Exam - General 1994 Respiratory respiratory effort/rhythm Overall: normal rate 09/07/2016 None Full Exam - General 1994 Cardiovascular extremities Overall: no clubbing 09/07/2016 None Full Exam - General 1994 Cardiovascular auscultation of heart Rate: regular rate 09/07/2016 None Full Exam - General 1994 Cardiovascular auscultation of heart Rhythm: regular rhythm 09/07/2016 None Full Exam - General 1994 Cardiovascular auscultation of heart Murmur: no murmur 09/07/2016 None Full Exam - General 1994 Musculoskeletal head and neck Overall: head atraumatic 09/07/2016 None Full Exam - General 1994 Musculoskeletal head and neck Overall: cervical spine benign 09/07/2016 None Full Exam - General 1994 Neurologic gait Overall: no ataxia, no unsteadiness 09/07/2016 None Full Exam - General 1994 Neurologic cranial nerves Overall: crainial nerves 2 - 12 grossly intact 09/07/2016 None Full Exam - General 1994 Psychiatric orientation/consciousness Overall: oriented to person, place and time 09/07/2016 None Full Exam - General 1994 Psychiatric mood and affect Overall: normal mood and affect 09/07/2016 None Full Exam - General 1994 Psychiatric appearance Overall: well-groomed, good eye contact 09/07/2016 None Full Exam - General 1994 Psychiatric judgment/insight Overall: judgment and insight intact 09/07/2016 None Full Exam - General 1994 Abdomen abdominal exam Overall: no tenderness 09/07/2016 None Full Exam - General 1994 Abdomen abdominal exam Overall: normal bowel sounds 09/07/2016 None Full Exam - General 1994 Lymphatic neck nodes Overall: anterior cervical chain benign 09/07/2016 None Full Exam - General 1994 Lymphatic neck nodes Overall: posterior cervical chain benign 09/07/2016 None Full Exam - General 1994 Integument inspection of skin Location: right leg 09/07/2016 keratotic lesion right leg Full Exam - General 1994 Constitutional general appearance Overall: well developed 03/08/2016 None Full Exam - General 1994 Constitutional general appearance Overall: in no acute distress 03/08/2016 None Full Exam - General 1994 Constitutional general appearance Overall: well nourished 03/08/2016 None Full Exam - General 1994 Eyes conjunctiva /eyelids Overall: conjunctiva clear 03/08/2016 None Full Exam - General 1994 Eyes conjunctiva /eyelids Overall: eyelids normal 03/08/2016 None Full Exam - General 1994 Eyes pupils and irises Overall: pupils equal, round, reactive to light and accomodation 03/08/2016 None Full Exam - General 1994 Ears/Nose/Throat external ear Auricle: a normal exam 03/08/2016 None Full Exam - General 1994 Ears/Nose/Throat external ear Auricle: lesion 03/08/2016 dry white patching to the outer left auricle, nontender Full Exam - General 1994 Ears/Nose/Throat external ear Auricle: nontender 03/08/2016 None Full Exam - General 1994 Ears/Nose/Throat external nose Overall: benign appearance 03/08/2016 None Full Exam - General 1994 Ears/Nose/Throat hearing assessment Gross exam: diminished to whisper 03/08/2016 None Full Exam - General 1994 Ears/Nose/Throat lips/teeth/gingiva Overall: benign lips 03/08/2016 None Full Exam - General 1994 Ears/Nose/Throat lips/teeth/gingiva Overall: normal dentition 03/08/2016 None Full Exam - General 1994 Ears/Nose/Throat lips/teeth/gingiva Overall: no masses 03/08/2016 pt with a very small posterior airway opening - long upper palate and large tongue base Full Exam - General 1994 Ears/Nose/Throat oral cavity/pharynx/larynx Overall: oral mucosa clear 03/08/2016 None Full Exam - General 1994 Ears/Nose/Throat oral cavity/pharynx/larynx Overall: mobile tongue benign 03/08/2016 None Full Exam - General 1994 Ears/Nose/Throat oral cavity/pharynx/larynx Overall: hard palate benign 03/08/2016 None Full Exam - General 1994 Ears/Nose/Throat oral cavity/pharynx/larynx Overall: oropharyngeal mucosa clear 03/08/2016 None Full Exam - General 1994 Ears/Nose/Throat oral cavity/pharynx/larynx Overall: no masses 03/08/2016 None Full Exam - General 1994 Ears/Nose/Throat oral cavity/pharynx/larynx Mobile tongue: a normal exam 03/08/2016 None Full Exam - General 1994 Neck inspection of neck Overall: no carotid bruits 03/08/2016 None Full Exam - General 1994 Respiratory auscultation Overall: breath sounds clear bilaterally 03/08/2016 None Full Exam - General 1994 Respiratory respiratory effort/rhythm Overall: no retractions 03/08/2016 None Full Exam - General 1994 Respiratory respiratory effort/rhythm Overall: normal rate 03/08/2016 None Full Exam - General 1994 Cardiovascular extremities Overall: no clubbing 03/08/2016 None Full Exam - General 1994 Cardiovascular auscultation of heart Rate: regular rate 03/08/2016 None Full Exam - General 1994 Cardiovascular auscultation of heart Rhythm: regular rhythm 03/08/2016 None Full Exam - General 1994 Cardiovascular auscultation of heart Murmur: no murmur 03/08/2016 None Full Exam - General 1994 Abdomen abdominal exam Overall: no tenderness 03/08/2016 None Full Exam - General 1994 Abdomen abdominal exam Overall: normal bowel sounds 03/08/2016 None Full Exam - General 1994 Musculoskeletal head and neck Overall: head atraumatic 03/08/2016 None Full Exam - General 1994 Musculoskeletal head and neck Overall: cervical spine benign 03/08/2016 None Full Exam - General 1994 Integument inspection of skin Dermatitis: mole 03/08/2016 dark lesion on right neck behind right ear Full Exam - General 1994 Neurologic gait Overall: no ataxia, no unsteadiness 03/08/2016 None Full Exam - General 1994 Neurologic cranial nerves Overall: crainial nerves 2 - 12 grossly intact 03/08/2016 None Full Exam - General 1994 Psychiatric orientation/consciousness Overall: oriented to person, place and time 03/08/2016 None Full Exam - General 1994 Psychiatric mood and affect Overall: normal mood and affect 03/08/2016 None Full Exam - General 1994 Psychiatric appearance Overall: well-groomed, good eye contact 03/08/2016 None Full Exam - General 1994 Psychiatric judgment/insight Overall: judgment and insight intact 03/08/2016 None Full Exam - General 1994 Ears/Nose/Throat otoscopic exam External auditory canal: nontender 03/08/2016 but 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, two removed on right wiht a 3rd cushion left in right ear, unable to obtain with alligator forceps Full Exam - General 1994 Constitutional general appearance Overall: well developed 09/08/2015 None Full Exam - General 1994 Constitutional general appearance Overall: in no acute distress 09/08/2015 None Full Exam - General 1994 Constitutional general appearance Overall: well nourished 09/08/2015 None Full Exam - General 1994 Eyes conjunctiva /eyelids Overall: conjunctiva clear 09/08/2015 None Full Exam - General 1994 Eyes conjunctiva /eyelids Overall: eyelids normal 09/08/2015 None Full Exam - General 1994 Eyes pupils and irises Overall: pupils equal, round, reactive to light and accomodation 09/08/2015 None Full Exam - General 1994 Ears/Nose/Throat external ear Auricle: a normal exam 09/08/2015 None Full Exam - General 1994 Ears/Nose/Throat external ear Auricle: lesion 09/08/2015 dry white patching to the outer left auricle, nontender Full Exam - General 1994 Ears/Nose/Throat external ear Auricle: nontender 09/08/2015 None Full Exam - General 1994 Ears/Nose/Throat external nose Overall: benign appearance 09/08/2015 None Full Exam - General 1994 Ears/Nose/Throat hearing assessment Gross exam: diminished to whisper 09/08/2015 None Full Exam - General 1994 Ears/Nose/Throat lips/teeth/gingiva Overall: benign lips 09/08/2015 None Full Exam - General 1994 Ears/Nose/Throat lips/teeth/gingiva Overall: normal dentition 09/08/2015 None Full Exam - General 1994 Ears/Nose/Throat lips/teeth/gingiva Overall: no masses 09/08/2015 pt with a very small posterior airway opening - long upper palate and large tongue base Full Exam - General 1994 Ears/Nose/Throat oral cavity/pharynx/larynx Overall: oral mucosa clear 09/08/2015 None Full Exam - General 1994 Ears/Nose/Throat oral cavity/pharynx/larynx Overall: mobile tongue benign 09/08/2015 None Full Exam - General 1994 Ears/Nose/Throat oral cavity/pharynx/larynx Overall: hard palate benign 09/08/2015 None Full Exam - General 1994 Ears/Nose/Throat oral cavity/pharynx/larynx Overall: oropharyngeal mucosa clear 09/08/2015 None Full Exam - General 1994 Ears/Nose/Throat oral cavity/pharynx/larynx Overall: no masses 09/08/2015 None Full Exam - General 1994 Ears/Nose/Throat oral cavity/pharynx/larynx Mobile tongue: a normal exam 09/08/2015 None Full Exam - General 1994 Respiratory auscultation Overall: breath sounds clear bilaterally 09/08/2015 None Full Exam - General 1994 Respiratory respiratory effort/rhythm Overall: no retractions 09/08/2015 None Full Exam - General 1994 Respiratory respiratory effort/rhythm Overall: normal rate 09/08/2015 None Full Exam - General 1994 Cardiovascular extremities Overall: no clubbing 09/08/2015 None Full Exam - General 1994 Cardiovascular auscultation of heart Rate: regular rate 09/08/2015 None Full Exam - General 1994 Cardiovascular auscultation of heart Rhythm: regular rhythm 09/08/2015 None Full Exam - General 1994 Cardiovascular auscultation of heart Murmur: no murmur 09/08/2015 None Full Exam - General 1994 Abdomen abdominal exam Overall: no tenderness 09/08/2015 None Full Exam - General 1994 Abdomen abdominal exam Overall: normal bowel sounds 09/08/2015 None Full Exam - General 1994 Musculoskeletal head and neck Overall: head atraumatic 09/08/2015 None Full Exam - General 1994 Musculoskeletal head and neck Overall: cervical spine benign 09/08/2015 None Full Exam - General 1994 Neurologic gait Overall: no ataxia, no unsteadiness 09/08/2015 None Full Exam - General 1994 Neurologic cranial nerves Overall: crainial nerves 2 - 12 grossly intact 09/08/2015 None Full Exam - General 1994 Psychiatric orientation/consciousness Overall: oriented to person, place and time 09/08/2015 None Full Exam - General 1994 Psychiatric mood and affect Overall: normal mood and affect 09/08/2015 None Full Exam - General 1994 Psychiatric appearance Overall: well-groomed, good eye contact 09/08/2015 None Full Exam - General 1994 Psychiatric judgment/insight Overall: judgment and insight intact 09/08/2015 None Full Exam - General 1994 Integument inspection of skin Dermatitis: mole 09/08/2015 right neck - dark brown changes to the neck below right jawline Full Exam - General 1994 Lymphatic neck nodes Overall: anterior cervical chain benign 09/08/2015 None Full Exam - General 1994 Lymphatic neck nodes Overall: posterior cervical chain benign 09/08/2015 None Full Exam - General 1994 Constitutional general appearance Overall: well nourished 10/15/2014 None Full Exam - General 1994 Constitutional general appearance Overall: well developed 10/15/2014 None Full Exam - General 1994 Constitutional general appearance Overall: in no acute distress 10/15/2014 None Full Exam - General 1994 Psychiatric orientation/consciousness Overall: oriented to person, place and time 10/15/2014 None Full Exam - General 1994 Integument inspection of skin Dermatitis: mole 10/15/2014 on left upper lateral deltoid region - irritated with a red base, partially rolled border on lower portion from 5 oclock to 8 oclock with a white scar/skin change below the lesion - Full Exam - General 1994 Integument inspection of skin Location: left arm 10/15/2014 Consent signed and on chart. The patient's mole was cleansed with alcohol and infiltrated with lidocaine with epinephrine. The lesion was cleansed with iodine, and draped in sterile fashion. The lesion was then removed with sharp excision using an elliptical excision. The surgical site was closed with 4-0 Vicryl with____7__ # sutures. Dressing placed on lesion prior to pt discharge. Full Exam - General 1994 Constitutional general appearance Overall: well developed 10/02/2014 None Full Exam - General 1994 Constitutional general appearance Overall: in no acute distress 10/02/2014 None Full Exam - General 1994 Constitutional general appearance Overall: well nourished 10/02/2014 None Full Exam - General 1994 Eyes conjunctiva /eyelids Overall: conjunctiva clear 10/02/2014 None Full Exam - General 1994 Eyes conjunctiva /eyelids Overall: eyelids normal 10/02/2014 None Full Exam - General 1994 Eyes pupils and irises Overall: pupils equal, round, reactive to light and accomodation 10/02/2014 None Full Exam - General 1994 Ears/Nose/Throat external ear Auricle: a normal exam 10/02/2014 None Full Exam - General 1994 Ears/Nose/Throat external ear Auricle: lesion 10/02/2014 dry white patching to the outer left auricle, nontender Full Exam - General 1994 Ears/Nose/Throat external ear Auricle: nontender 10/02/2014 None Full Exam - General 1994 Ears/Nose/Throat external nose Overall: benign appearance 10/02/2014 None Full Exam - General 1994 Ears/Nose/Throat hearing assessment Gross exam: diminished to whisper 10/02/2014 None Full Exam - General 1994 Ears/Nose/Throat lips/teeth/gingiva Overall: benign lips 10/02/2014 None Full Exam - General 1994 Ears/Nose/Throat lips/teeth/gingiva Overall: normal dentition 10/02/2014 None Full Exam - General 1994 Ears/Nose/Throat lips/teeth/gingiva Overall: no masses 10/02/2014 pt with a very small posterior airway opening - long upper palate and large tongue base Full Exam - General 1994 Ears/Nose/Throat oral cavity/pharynx/larynx Overall: oral mucosa clear 10/02/2014 None Full Exam - General 1994 Ears/Nose/Throat oral cavity/pharynx/larynx Overall: mobile tongue benign 10/02/2014 None Full Exam - General 1994 Ears/Nose/Throat oral cavity/pharynx/larynx Overall: hard palate benign 10/02/2014 None Full Exam - General 1994 Ears/Nose/Throat oral cavity/pharynx/larynx Overall: oropharyngeal mucosa clear 10/02/2014 None Full Exam - General 1994 Ears/Nose/Throat oral cavity/pharynx/larynx Overall: no masses 10/02/2014 None Full Exam - General 1994 Ears/Nose/Throat oral cavity/pharynx/larynx Mobile tongue: a normal exam 10/02/2014 None Full Exam - General 1994 Neck inspection of neck Overall: no carotid bruits 10/02/2014 None Full Exam - General 1994 Respiratory auscultation Overall: breath sounds clear bilaterally 10/02/2014 None Full Exam - General 1994 Respiratory respiratory effort/rhythm Overall: no retractions 10/02/2014 None Full Exam - General 1994 Respiratory respiratory effort/rhythm Overall: normal rate 10/02/2014 None Full Exam - General 1994 Cardiovascular extremities Overall: no clubbing 10/02/2014 None Full Exam - General 1994 Cardiovascular auscultation of heart Rate: regular rate 10/02/2014 None Full Exam - General 1994 Cardiovascular auscultation of heart Rhythm: regular rhythm 10/02/2014 None Full Exam - General 1994 Cardiovascular auscultation of heart Murmur: no murmur 10/02/2014 None Full Exam - General 1994 Musculoskeletal head and neck Overall: head atraumatic 10/02/2014 None Full Exam - General 1994 Musculoskeletal head and neck Overall: cervical spine benign 10/02/2014 None Full Exam - General 1994 Integument inspection of skin Dermatitis: mole 10/02/2014 dark lesion on left upper arm Full Exam - General 1994 Neurologic gait Overall: no ataxia, no unsteadiness 10/02/2014 None Full Exam - General 1994 Neurologic cranial nerves Overall: crainial nerves 2 - 12 grossly intact 10/02/2014 None Full Exam - General 1994 Psychiatric orientation/consciousness Overall: oriented to person, place and time 10/02/2014 None Full Exam - General 1994 Psychiatric mood and affect Overall: normal mood and affect 10/02/2014 None Full Exam - General 1994 Psychiatric appearance Overall: well-groomed, good eye contact 10/02/2014 None Full Exam - General 1994 Psychiatric judgment/insight Overall: judgment and insight intact 10/02/2014 None Full Exam - General 1994 Abdomen abdominal exam Overall: no tenderness 10/02/2014 None Full Exam - General 1994 Abdomen abdominal exam Overall: normal bowel sounds 10/02/2014 None Full Exam - General 1994 Constitutional general appearance Overall: well developed 08/28/2013 None Full Exam - General 1994 Constitutional general appearance Overall: in no acute distress 08/28/2013 None Full Exam - General 1994 Constitutional general appearance Overall: well nourished 08/28/2013 None Full Exam - General 1994 Eyes conjunctiva /eyelids Overall: conjunctiva clear 08/28/2013 None Full Exam - General 1994 Eyes conjunctiva /eyelids Overall: eyelids normal 08/28/2013 None Full Exam - General 1994 Eyes pupils and irises Overall: pupils equal, round, reactive to light and accomodation 08/28/2013 None Full Exam - General 1994 Respiratory auscultation Overall: breath sounds clear bilaterally 08/28/2013 None Full Exam - General 1994 Respiratory respiratory effort/rhythm Overall: no retractions 08/28/2013 None Full Exam - General 1994 Respiratory respiratory effort/rhythm Overall: normal rate 08/28/2013 None Full Exam - General 1994 Cardiovascular extremities Overall: no clubbing 08/28/2013 None Full Exam - General 1994 Cardiovascular auscultation of heart Rate: regular rate 08/28/2013 None Full Exam - General 1994 Cardiovascular auscultation of heart Rhythm: regular rhythm 08/28/2013 None Full Exam - General 1994 Cardiovascular auscultation of heart Murmur: no murmur 08/28/2013 None Full Exam - General 1994 Psychiatric orientation/consciousness Overall: oriented to person, place and time 08/28/2013 None Full Exam - General 1994 Psychiatric mood and affect Overall: normal mood and affect 08/28/2013 None Full Exam - General 1994 Psychiatric appearance Overall: well-groomed, good eye contact 08/28/2013 None Full Exam - General 1994 Psychiatric judgment/insight Overall: judgment and insight intact 08/28/2013 None Full Exam - General 1994 Ears/Nose/Throat external ear Auricle: a normal exam 08/28/2013 None Full Exam - General 1994 Ears/Nose/Throat external ear Auricle: nontender 08/28/2013 None Full Exam - General 1994 Ears/Nose/Throat external nose Overall: benign appearance 08/28/2013 None Full Exam - General 1994 Ears/Nose/Throat lips/teeth/gingiva Overall: benign lips 08/28/2013 None Full Exam - General 1994 Ears/Nose/Throat lips/teeth/gingiva Overall: normal dentition 08/28/2013 None Full Exam - General 1994 Ears/Nose/Throat oral cavity/pharynx/larynx Overall: oral mucosa clear 08/28/2013 None Full Exam - General 1994 Ears/Nose/Throat oral cavity/pharynx/larynx Overall: mobile tongue benign 08/28/2013 None Full Exam - General 1994 Ears/Nose/Throat oral cavity/pharynx/larynx Overall: hard palate benign 08/28/2013 None Full Exam - General 1995 Ears/Nose/Throat oral cavity/pharynx/larynx Overall: oropharyngeal mucosa clear 08/28/2013 None Full Exam - General 1994 Ears/Nose/Throat oral cavity/pharynx/larynx Overall: no masses 08/28/2013 None Full Exam - General 1994 Ears/Nose/Throat oral cavity/pharynx/larynx Mobile tongue: a normal exam 08/28/2013 None Full Exam - General 1994 Neck inspection of neck Overall: no carotid bruits 08/28/2013 None Full Exam - General 1994 Musculoskeletal upper extremity Overall: normal shoulder 08/28/2013 None Full Exam - General 1994 Musculoskeletal head and neck Overall: head atraumatic 08/28/2013 None Full Exam - General 1994 Musculoskeletal head and neck Overall: cervical spine benign 08/28/2013 None Full Exam - General 1994 Neurologic gait Overall: no ataxia, no unsteadiness 08/28/2013 None Full Exam - General 1994 Neurologic cranial nerves Overall: crainial nerves 2 - 12 grossly intact 08/28/2013 None Full Exam - Dermatology Constitutional general appearance Overall: well nourished 02/16/2013 None Full Exam - Dermatology Constitutional general appearance Overall: well developed 02/16/2013 None Full Exam - Dermatology Constitutional general appearance Overall: in no acute distress 02/16/2013 None Full Exam - Dermatology Constitutional general appearance Overall: well groomed 02/16/2013 None Full Exam - Dermatology Integument insp & palp - head/face Lesion: macule 02/16/2013 None Full Exam - Dermatology Integument insp & palp - head/face Appearance: flat- topped 02/16/2013 None Full Exam - Dermatology Integument insp & palp - head/face Number: one 02/16/2013 None Full Exam - Dermatology Psychiatric orientation Overall: oriented to person, place and time 02/16/2013 None Full Exam - Dermatology Integument insp & palp - head/face Color: black 02/16/2013 None Full Exam - Dermatology Integument insp & palp - head/face Length: less than 5mm 02/16/2013 None Full Exam - Dermatology Integument insp & palp - head/face Width: less than 5mm 02/16/2013 None Full Exam - Dermatology Integument insp & palp - head/face Location: on the right neck/shoulder 02/16/2013 skin cleansed with alcohol, lesion infiltrated with lidocain 1mL, then lesion cleansed with betadine, then draped with sterile towels, the lesion was incised with 8mm punch biopsy, removed with 15 blade, and then lesion closed with 3 sutures 4-0 nylon. Full Exam - General 1994 Constitutional general appearance Overall: well developed 02/14/2013 None Full Exam - General 1994 Constitutional general appearance Overall: in no acute distress 02/14/2013 None Full Exam - General 1994 Constitutional general appearance Overall: well nourished 02/14/2013 None Full Exam - General 1994 Eyes conjunctiva /eyelids Overall: conjunctiva clear 02/14/2013 None Full Exam - General 1994 Eyes conjunctiva /eyelids Overall: eyelids normal 02/14/2013 None Full Exam - General 1994 Eyes pupils and irises Overall: pupils equal, round, reactive to light and accomodation 02/14/2013 None Full Exam - General 1995 Ears/Nose/Throat external ear Auricle: a normal exam 02/14/2013 None Full Exam - General 1994 Ears/Nose/Throat external ear Auricle: lesion 02/14/2013 dry white patching to the outer left auricle, nontender Full Exam - General 1995 Ears/Nose/Throat external ear Auricle: nontender 02/14/2013 None Full Exam - General 1994 Ears/Nose/Throat external nose Overall: benign appearance 02/14/2013 None Full Exam - General 1995 Ears/Nose/Throat hearing assessment Gross exam: diminished to whisper 02/14/2013 None Full Exam - General 1995 Ears/Nose/Throat lips/teeth/gingiva Overall: benign lips 02/14/2013 None Full Exam - General 1995 Ears/Nose/Throat lips/teeth/gingiva Overall: normal dentition 02/14/2013 None Full Exam - General 1995 Ears/Nose/Throat lips/teeth/gingiva Overall: no masses 02/14/2013 pt with a very small posterior airway opening - long upper palate and large tongue base Full Exam - General 1995 Ears/Nose/Throat oral cavity/pharynx/larynx Overall: oral mucosa clear 02/14/2013 None Full Exam - General 1995 Ears/Nose/Throat oral cavity/pharynx/larynx Overall: mobile tongue benign 02/14/2013 None Full Exam - General 1995 Ears/Nose/Throat oral cavity/pharynx/larynx Overall: hard palate benign 02/14/2013 None Full Exam - General 1995 Ears/Nose/Throat oral cavity/pharynx/larynx Overall: oropharyngeal mucosa clear 02/14/2013 None Full Exam - General 1995 Ears/Nose/Throat oral cavity/pharynx/larynx Overall: no masses 02/14/2013 None Full Exam - General 1995 Ears/Nose/Throat oral cavity/pharynx/larynx Mobile tongue: a normal exam 02/14/2013 None Full Exam - General 1994 Neck inspection of neck Overall: no carotid bruits 02/14/2013 None Full Exam - General 1994 Respiratory auscultation Overall: breath sounds clear bilaterally 02/14/2013 None Full Exam - General 1995 Respiratory respiratory effort/rhythm Overall: no retractions 02/14/2013 None Full Exam - General 1994 Respiratory respiratory effort/rhythm Overall: normal rate 02/14/2013 None Full Exam - General 1994 Cardiovascular auscultation of heart Rate: regular rate 02/14/2013 None Full Exam - General 1995 Cardiovascular auscultation of heart Rhythm: regular rhythm 02/14/2013 None Full Exam - General 1994 Cardiovascular auscultation of heart Murmur: no murmur 02/14/2013 None Full Exam - General 1994 Cardiovascular extremities Overall: no clubbing 02/14/2013 None Full Exam - General 1994 Musculoskeletal head and neck Overall: head atraumatic 02/14/2013 None Full Exam - General 1994 Musculoskeletal head and neck Overall: cervical spine benign 02/14/2013 None Full Exam - General 1994 Musculoskeletal upper extremity Overall: normal shoulder 02/14/2013 None Full Exam - General 1994 Neurologic gait Overall: no ataxia, no unsteadiness 02/14/2013 None Full Exam - General 1994 Neurologic cranial nerves Overall: crainial nerves 2 - 12 grossly intact 02/14/2013 None Full Exam - General 1994 Psychiatric orientation/consciousness Overall: oriented to person, place and time 02/14/2013 None Full Exam - General 1994 Psychiatric mood and affect Overall: normal mood and affect 02/14/2013 None Full Exam - General 1994 Psychiatric appearance Overall: well-groomed, good eye contact 02/14/2013 None Full Exam - General 1994 Psychiatric judgment/insight Overall: judgment and insight intact 02/14/2013 None Full Exam - General 1994 Integument inspection of skin Dermatitis: mole 02/14/2013 dark lesion on right neck/shoulder 2mm x 2mm almost black pigmentation Full Exam - ENT Constitutional general appearance Overall: in no acute distress 07/25/2012 None Full Exam - ENT Neurologic orientation Overall: oriented to person, place and time 07/25/2012 None Full Exam - ENT Lymphatic palpation of lymph nodes Overall: anterior cervical chain benign 07/25/2012 None Full Exam - ENT Lymphatic palpation of lymph nodes Overall: posterior cervical chain benign 07/25/2012 None Full Exam - ENT Cardiovascular auscultation of heart Overall: regular rate 07/25/2012 None Full Exam - ENT Cardiovascular auscultation of heart Overall: normal heart sounds 07/25/2012 None Full Exam - ENT Cardiovascular auscultation of heart Overall: no murmurs 07/25/2012 None Full Exam - ENT Respiratory auscultation Overall: breath sounds clear bilaterally 07/25/2012 None Full Exam - ENT Face and Head palpation Overall: no sinus tenderness 07/25/2012 None Full Exam - ENT Ears/Nose/Throat otoscopic exam Overall: external auditory canals normal 07/25/2012 None Full Exam - ENT Ears/Nose/Throat otoscopic exam Overall: tympanic membranes normal 07/25/2012 None Full Exam - ENT Ears/Nose/Throat oropharynx Overall: oral mucosa clear 07/25/2012 None Full Exam - ENT Constitutional general appearance Overall: well nourished 07/25/2012 None Full Exam - ENT Constitutional general appearance Overall: well developed 07/25/2012 None Full Exam - General 1994 Respiratory respiratory effort/rhythm Overall: no retractions 01/26/2012 None Full Exam - General 1994 Respiratory respiratory effort/rhythm Overall: normal rate 01/26/2012 None Full Exam - General 1994 Cardiovascular auscultation of heart Rate: regular rate 01/26/2012 None Full Exam - General 1994 Cardiovascular auscultation of heart Rhythm: regular rhythm 01/26/2012 None Full Exam - General 1994 Cardiovascular extremities Overall: no clubbing 01/26/2012 None Full Exam - General 1994 Musculoskeletal head and neck Overall: head atraumatic 01/26/2012 None Full Exam - General 1994 Musculoskeletal head and neck Overall: cervical spine benign 01/26/2012 None Full Exam - General 1994 Musculoskeletal upper extremity Overall: normal shoulder 01/26/2012 None Full Exam - General 1994 Neurologic gait Overall: no ataxia, no unsteadiness 01/26/2012 None Full Exam - General 1994 Neurologic cranial nerves Overall: crainial nerves 2 - 12 grossly intact 01/26/2012 None Full Exam - General 1994 Psychiatric orientation/consciousness Overall: oriented to person, place and time 01/26/2012 None Full Exam - General 1994 Psychiatric mood and affect Overall: normal mood and affect 01/26/2012 None Full Exam - General 1994 Psychiatric appearance Overall: well-groomed, good eye contact 01/26/2012 None Full Exam - General 1994 Psychiatric judgment/insight Overall: judgment and insight intact 01/26/2012 None Full Exam - General 1994 Cardiovascular auscultation of heart Murmur: no murmur 01/26/2012 None Full Exam - General 1994 Integument inspection of skin Dermatitis: thickened 01/26/2012 None Full Exam - General 1995 Integument inspection of skin Dermatitis: dryness/ flaking 01/26/2012 None Full Exam - General 1994 Integument inspection of skin Location: face 01/26/2012 right neck/jawline actinic keratosis Full Exam - General 1995 Ears/Nose/Throat oral cavity/pharynx/larynx Overall: mobile tongue benign 01/26/2012 None Full Exam - General 1995 Ears/Nose/Throat oral cavity/pharynx/larynx Overall: hard palate benign 01/26/2012 None Full Exam - General 1995 Ears/Nose/Throat oral cavity/pharynx/larynx Overall: oropharyngeal mucosa clear 01/26/2012 None Full Exam - General 1995 Ears/Nose/Throat oral cavity/pharynx/larynx Overall: no masses 01/26/2012 None Full Exam - General 1994 Constitutional general appearance Overall: well developed 01/26/2012 None Full Exam - General 1994 Constitutional general appearance Overall: in no acute distress 01/26/2012 None Full Exam - General 1994 Constitutional general appearance Overall: well nourished 01/26/2012 None Full Exam - General 1994 Eyes conjunctiva /eyelids Overall: conjunctiva clear 01/26/2012 None Full Exam - General 1994 Eyes conjunctiva /eyelids Overall: eyelids normal 01/26/2012 None Full Exam - General 1994 Eyes pupils and irises Overall: pupils equal, round, reactive to light and accomodation 01/26/2012 None Full Exam - General 1995 Ears/Nose/Throat oral cavity/pharynx/larynx Mobile tongue: a normal exam 01/26/2012 None Full Exam - General 1994 Neck inspection of neck Overall: no carotid bruits 01/26/2012 None Full Exam - General 1994 Respiratory auscultation Overall: breath sounds clear bilaterally 01/26/2012 None Full Exam - General 1994 Ears/Nose/Throat external ear Auricle: a normal exam 01/26/2012 None Full Exam - General 1994 Ears/Nose/Throat external ear Auricle: lesion 01/26/2012 dry white patching to the outer left auricle, nontender Full Exam - General 1995 Ears/Nose/Throat external ear Auricle: nontender 01/26/2012 None Full Exam - General 1994 Ears/Nose/Throat external nose Overall: benign appearance 01/26/2012 None Full Exam - General 1994 Ears/Nose/Throat hearing assessment Gross exam: diminished to whisper 01/26/2012 None Full Exam - General 1994 Ears/Nose/Throat lips/teeth/gingiva Overall: benign lips 01/26/2012 None Full Exam - General 1994 Ears/Nose/Throat lips/teeth/gingiva Overall: normal dentition 01/26/2012 None Full Exam - General 1994 Ears/Nose/Throat lips/teeth/gingiva Overall: no masses 01/26/2012 pt with a very small posterior airway opening - long upper palate and large tongue base Full Exam - General 1994 Ears/Nose/Throat oral cavity/pharynx/larynx Overall: oral mucosa clear 01/26/2012 None Full Exam - Dermatology Constitutional general appearance Overall: well nourished 09/14/2011 None Full Exam - Dermatology Constitutional general appearance Overall: well developed 09/14/2011 None Full Exam - Dermatology Constitutional general appearance Overall: in no acute distress 09/14/2011 None Full Exam - Dermatology Constitutional general appearance Overall: well groomed 09/14/2011 None Full Exam - Dermatology Integument insp & palp - head/face Lesion: macule 09/14/2011 None Full Exam - Dermatology Integument insp & palp - head/face Location: on the left jaw 09/14/2011 None Full Exam - Dermatology Integument insp & palp - head/face Color: dark brown 09/14/2011 None Full Exam - Dermatology Integument insp & palp - head/face Appearance: flat- topped 09/14/2011 None Full Exam - Dermatology Integument insp & palp - head/face Number: one 09/14/2011 None Full Exam - Dermatology Integument insp & palp - head/face Length: 5-10mm 09/14/2011 None Full Exam - Dermatology Integument insp & palp - head/face Width: 5-10mm 09/14/2011 None Full Exam - Dermatology Integument insp & palp - chest/axillae Lesion: macule 09/14/2011 None Full Exam - Dermatology Integument insp & palp - chest/axillae Location: on the right chest 09/14/2011 None Full Exam - Dermatology Integument insp & palp - chest/axillae Color: soni 09/14/2011 None Full Exam - Dermatology Integument insp & palp - chest/axillae Appearance: crusted 09/14/2011 None Full Exam - Dermatology Integument insp & palp - chest/axillae Shape: round 09/14/2011 None Full Exam - Dermatology Integument insp & palp - chest/axillae Number: one 09/14/2011 None Full Exam - Dermatology Integument insp & palp - chest/axillae Length: 1cm 09/14/2011 None Full Exam - Dermatology Integument insp & palp - chest/axillae Width: 1cm 09/14/2011 None Full Exam - Dermatology Integument insp & palp - back Lesion: macule 09/14/2011 None Full Exam - Dermatology Integument insp & palp - back Location: on the right upper back 09/14/2011 None Full Exam - Dermatology Integument insp & palp - back Location: on the right mid back 09/14/2011 None Full Exam - Dermatology Integument insp & palp - back Location: on the mid back 09/14/2011 None Full Exam - Dermatology Integument insp & palp - back Location: on the left shoulder 09/14/2011 None Full Exam - Dermatology Integument insp & palp - back Color: dark brown 09/14/2011 None Full Exam - Dermatology Integument insp & palp - back Shape: irregular 09/14/2011 None Full Exam - Dermatology Integument insp & palp - back Number: four 09/14/2011 None Full Exam - Dermatology Integument insp & palp - back Length: 5-10mm 09/14/2011 None Full Exam - Dermatology Integument insp & palp - back Width: 5-10mm 09/14/2011 None Full Exam - Dermatology Psychiatric orientation Overall: oriented to person, place and time 09/14/2011 None Full Exam - General 1994 Ears/Nose/Throat external nose Overall: benign appearance 09/08/2011 None Full Exam - General 1994 Ears/Nose/Throat otoscopic exam External auditory canal: complete cerumen impaction 09/08/2011 None Full Exam - General 1994 Ears/Nose/Throat otoscopic exam Tympanic membrane: not visualized 09/08/2011 the TM's were not initially visualized, but after removal of the impacted cerumen, there was evidence of tympanosclerosis bilaterally Full Exam - General 1994 Ears/Nose/Throat hearing assessment Gross exam: diminished to whisper 09/08/2011 None Full Exam - General 1995 Ears/Nose/Throat lips/teeth/gingiva Overall: benign lips 09/08/2011 None Full Exam - General 1995 Ears/Nose/Throat lips/teeth/gingiva Overall: normal dentition 09/08/2011 None Full Exam - General 1995 Ears/Nose/Throat oral cavity/pharynx/larynx Overall: oral mucosa clear 09/08/2011 None Full Exam - General 1995 Ears/Nose/Throat oral cavity/pharynx/larynx Overall: mobile tongue benign 09/08/2011 None Full Exam - General 1995 Ears/Nose/Throat oral cavity/pharynx/larynx Overall: hard palate benign 09/08/2011 None Full Exam - General 1995 Ears/Nose/Throat oral cavity/pharynx/larynx Overall: oropharyngeal mucosa clear 09/08/2011 None Full Exam - General 1995 Ears/Nose/Throat oral cavity/pharynx/larynx Overall: no masses 09/08/2011 None Full Exam - General 1995 Ears/Nose/Throat lips/teeth/gingiva Overall: no masses 09/08/2011 pt with a very small posterior airway opening - long upper palate and large tongue base Full Exam - General 1994 Ears/Nose/Throat oral cavity/pharynx/larynx Mobile tongue: a normal exam 09/08/2011 None Full Exam - General 1995 Ears/Nose/Throat oral cavity/pharynx/larynx Overall: no masses 09/08/2011 None Full Exam - General 1994 Neck thyroid Overall: normal size None Full Exam - General 1994 Neck thyroid Overall: no mass lesions 09/08/2011 None Full Exam - General 1994 Neck inspection of neck Overall: no carotid bruits 09/08/2011 None Full Exam - General 1994 Respiratory auscultation Overall: breath sounds clear bilaterally 09/08/2011 None Full Exam - General 1994 Respiratory respiratory effort/rhythm Overall: normal rate 09/08/2011 None Full Exam - General 1994 Respiratory respiratory effort/rhythm Overall: no retractions 09/08/2011 None Full Exam - General 1994 Cardiovascular auscultation of heart Rate: regular rate 09/08/2011 None Full Exam - General 1994 Cardiovascular auscultation of heart Rhythm: regular rhythm 09/08/2011 None Full Exam - General 1994 Cardiovascular auscultation of heart Murmur: no murmur 09/08/2011 None Full Exam - General 1994 Cardiovascular inspection of carotid pulses Overall: strong, bilaterally equal, no bruits 09/08/2011 None Full Exam - General 1994 Cardiovascular extremities Overall: no clubbing 09/08/2011 None Full Exam - General 1994 Chest/Breast breast/chest inspection Overall: normal chest shape 09/08/2011 None Full Exam - General 1994 Abdomen abdominal exam Overall: no tenderness 09/08/2011 None Full Exam - General 1994 Abdomen abdominal exam Overall: normal bowel sounds 09/08/2011 None Full Exam - General 1994 Abdomen liver and spleen exam Overall: no hepatosplenomegaly 09/08/2011 None Full Exam - General 1994 Abdomen liver and spleen exam Overall: no stigmata of chronic liver disease 09/08/2011 None Full Exam - General 1994 Musculoskeletal head and neck Overall: cervical spine benign 09/08/2011 None Full Exam - General 1994 Musculoskeletal head and neck Overall: head atraumatic 09/08/2011 None Full Exam - General 1994 Musculoskeletal upper extremity Overall: normal shoulder 09/08/2011 None Full Exam - General 1994 Neurologic cranial nerves Overall: crainial nerves 2 - 12 grossly intact 09/08/2011 None Full Exam - General 1994 Integument inspection of skin Dermatitis: erythema 09/08/2011 in a wide pattern across shoulders, tapers to a smaller area of erythema from shoulders to the middle of lower back Full Exam - General 1994 Integument inspection of skin Hair: normal distribution 09/08/2011 None Full Exam - General 1994 Integument inspection of skin Location: see diagram 09/08/2011 several lesions noted - dark macule over the left cheek/jawline near mandibular process, on right upper chest , irritated lesion appears to be seborrheic keratosis, on the lateral left deltoid - very irritated base, with dry white cap, but with a central dimple, is not yet ulcerated, several other scattered seborrheic keratosis noted on the upper back. Full Exam - General 1994 Constitutional general appearance Overall: well nourished 09/08/2011 None Full Exam - General 1994 Constitutional general appearance Overall: well developed 09/08/2011 None Full Exam - General 1994 Constitutional general appearance Overall: in no acute distress 09/08/2011 None Full Exam - General 1994 Eyes pupils and irises Overall: pupils equal, round, reactive to light and accomodation 09/08/2011 None Full Exam - General 1995 Eyes conjunctiva /eyelids Overall: conjunctiva clear 09/08/2011 None Full Exam - General 1995 Eyes conjunctiva /eyelids Overall: eyelids normal 09/08/2011 None Full Exam - General 1995 Ears/Nose/Throat external ear Auricle: a normal exam 09/08/2011 None Full Exam - General 1995 Ears/Nose/Throat external ear Auricle: lesion 09/08/2011 dry white patching to the outer left auricle, nontender Full Exam - General 1994 Ears/Nose/Throat external ear Auricle: nontender 09/08/2011 None Full Exam - General 1995 Psychiatric orientation/consciousness Overall: oriented to person, place and time 09/08/2011 None Full Exam - General 1994 Psychiatric mood and affect Overall: normal mood and affect 09/08/2011 None Full Exam - General 1994 Psychiatric appearance Overall: well-groomed, good eye contact 09/08/2011 None Full Exam - General 1994 Psychiatric speech Overall: normal quality, quantity, rate 09/08/2011 None Full Exam - General 1994 Psychiatric thought Overall: normal form and content 09/08/2011 None Full Exam - General 1994 Psychiatric judgment/insight Overall: judgment and insight intact 09/08/2011 None Full Exam - General 1994 Neurologic deep tendon reflexes Overall: deep tendon reflexes intact 09/08/2011 None Full Exam - General 1994 Neurologic gait Overall: no ataxia, no unsteadiness 09/08/2011 None Procedures Procedure Codes Date PNEUMOCOCCAL VACC 13 KAREEM IM Formatting Model/CDA Sections, Assigned to SNOMED CT: [id number] CPT-4: [id number] 09/08/2015 IMMUNIZATION ADMIN CPT -4: 72088 09/08/2015 BIOPSY SKIN LESION CPT -4: 62728 10/15/2014 BIOPSY SKIN LESION CPT -4: 17496 02/16/2013 ROUTINE VENIPUNCTURE CPT-4: 60101 02/12/2013 DESTRUCT PREMALG LESION CPT-4: 18119 01/26/2012 DESTRUCT PREMALG LESION CPT-4: 08034 09/14/2011 BIOPSY SKIN LESION CPT -4: 34498 09/14/2011 BIOPSY SKIN ADD-ON CPT -4: 68410 09/14/2011 REMOVE IMPACTED EAR WAX UNI CPT-4: 34647 09/08/2011 Vital Signs Date Vital 09/08/2017 Blood Pressure 1: 116/62 Code : 8480-6 BMI: 28.6 Code : 40549-9 Heart Rate 1 : 81 bpm Height: 6' SpO2: 95% Weight: 211 lbs 03/07/2017 Blood Pressure 1: 122/82 Code : 8480-6 BMI: 28.9 Code : 50094-8 Heart Rate 1 : 78 bpm Height: 6' SpO2: 96% Weight: 213 lbs 09/07/2016 Blood Pressure 1: 144/90 Code : 8480-6 BMI: 29.4 Code : 99103-7 Heart Rate 1 : 60 bpm Height: 6' SpO2: 97% Weight: 217 lbs 03/08/2016 Blood Pressure 1: 146/84 Code : 8480-6 BMI: 28.9 Code : 96597-0 Heart Rate 1 : 90 bpm Height: 6' SpO2: 97% Weight: 213 lbs 09/08/2015 Blood Pressure 1: 110/58 Code : 8480-6 BMI: 28.8 Code : 68229-4 Heart Rate 1 : 68 bpm Height: 6' SpO2: 98% Weight: 212 lbs 10/15/2014 Blood Pressure 1: 130/88 Code : 8480-6 10/02/2014 Blood Pressure 1: 136/88 Code : 8480-6 BMI: 29.3 Code : 94104-1 Heart Rate 1 : 88 bpm Height: 6' Weight: 216 lbs 08/28/2013 Blood Pressure 1: 120/68 Code : 8480-6 BMI: 29.0 Code : 53077-1 Heart Rate 1 : 100 bpm Height: 6' Weight: 213 lbs 8 oz 02/16/2013 Blood Pressure 1: 128/86 Code : 8480-6 BMI: 29.0 Code : 37209-5 Heart Rate 1 : 80 bpm Height: 6' Weight: 214 lbs 02/14/2013 Blood Pressure 1: 122/72 Code : 8480-6 BMI: 29.0 Code : 37258-3 Heart Rate 1 : 80 bpm Height: 6' Weight: 214 lbs 07/25/2012 Blood Pressure 1: 136/80 Code : 8480-6 Heart Rate 1: 56 bpm Temperature: 36.8 (C) / 98.3 (F) Weight: 218 lbs 01/26/2012 Blood Pressure 1: 130/84 Code : 8480-6 BMI: 29.2 Code : 78692-4 Heart Rate 1 : 56 bpm Height: 6' Respiratory Rate: 16 bpm Weight: 215 lbs 8 oz 09/14/2011 Blood Pressure 1: 132/76 Code : 8480-6 Heart Rate 1: 60 bpm 09/08/2011 Blood Pressure 1: 120/70 Code : 8480-6 BMI: 29.4 Code : 02623-7 Heart Rate 1 : 76 bpm Height: 6' Respiratory Rate: 20 bpm Weight: 217 lbs Functional Status No Functional Status data History of Present Illness Symptom Name Status Result Effective Date Notes hyperlipidemia Onset and Resolution ongoing 09/08/2017 None hyperlipidemia Onset of Symptom during adulthood 09/08/2017 None hyperlipidemia Severity moderate 09/08/2017 None hyperlipidemia Alleviating Factors medication 09/08/2017 None hyperlipidemia Exacerbating Factors diet 09/08/2017 None hyperlipidemia Quality chronic 09/08/2017 None hyperlipidemia Significant Family History hyperlipidemia 09/08/2017 None hyperlipidemia Pertinent Findings Denies cold intolerance 09/08/2017 None hyperlipidemia Pertinent Findings Denies edema 09/08/2017 None hyperlipidemia Pertinent Findings Denies fever 09/08/2017 None hyperlipidemia Onset and Resolution ongoing 03/07/2017 None hyperlipidemia Onset of Symptom during adulthood 03/07/2017 None hyperlipidemia Severity moderate 03/07/2017 None hyperlipidemia Alleviating Factors medication 03/07/2017 None hyperlipidemia Exacerbating Factors diet 03/07/2017 None hyperlipidemia Quality chronic 03/07/2017 None hyperlipidemia Significant Family History hyperlipidemia 03/07/2017 None well man exam (65+ years) Lifestyle regular seatbelt use 09/07/2016 None well man exam (65+ years) Lifestyle normal sleep patterns 09/07/2016 None well man exam (65+ years) Lifestyle normal amount of stress 09/07/2016 None rash Location-Extremities on the right leg 09/07/2016 None rash Quality chronic 09/07/2016 None rash Color pink 2016 None rash Onset and Resolution gradual in onset 09/07/2016 None rash Onset of Symptom 3 months ago 09/07/2016 None rash Severity asymptomatic 09/07/2016 None rash Prior Treatments previously untreated 09/07/2016 None rash Triggers no known triggers 09/07/2016 None rash Alleviating Factors no alleviating factors 09/07/2016 None skin lesion Location in the submandibular area 03/08/2016 right lower jaw behind right ear cough Location in the lung 09/08/2015 None cough Quality hacking 09/08/2015 None cough Quality productive 09/08/2015 None cough Onset and Resolution sudden in onset 09/08/2015 None cough Onset of Symptom 4 days ago 09/08/2015 None cough Limitation on Activities does not limit activities 09/08/2015 None cough Frequency of Episodes daily 09/08/2015 None cough Alleviating Factors OTC medications 09/08/2015 None cough Pertinent Findings chest discomfort 09/08/2015 None sore throat Location on both sides 09/08/2015 None sore throat Quality dull 09/08/2015 None sore throat Quality scratchy 09/08/2015 None sore throat Onset and Resolution sudden in onset 09/08/2015 None sore throat Onset of Symptom 4 days ago 09/08/2015 None sore throat Limitation on Activities does not limit oral intake 09/08/2015 None sore throat Frequency of Episodes daily 09/08/2015 None sore throat Pertinent Findings cough 09/08/2015 None sore throat Pertinent Findings hoarseness 09/08/2015 None office procedure Procedure to be performed excision 10/15/2014 None office procedure Reason for Procedure changing mole, uncomfortable, with flaking off and red, irritated base on left arm 10/15/2014 None office procedure Additional Comments history of abnormal moles 10/15/2014 None hyperlipidemia Onset and Resolution ongoing 10/02/2014 None hyperlipidemia Onset of Symptom during adulthood 10/02/2014 None hyperlipidemia Severity moderate 10/02/2014 None hyperlipidemia Alleviating Factors medication 10/02/2014 None hyperlipidemia Exacerbating Factors diet 10/02/2014 None hyperlipidemia Quality chronic 10/02/2014 None hyperlipidemia Significant Family History hyperlipidemia 10/02/2014 None mole check Location-Major on the arms 10/02/2014 None hyperlipidemia Onset and Resolution ongoing 08/28/2013 None skin lesion Quality enlarging 08/28/2013 None skin lesion Location chest 08/28/2013 None skin lesion Onset and Resolution ongoing 08/28/2013 None hyperlipidemia Onset of Symptom during adulthood 08/28/2013 None hyperlipidemia Severity moderate 08/28/2013 None hyperlipidemia Alleviating Factors medication 08/28/2013 None hyperlipidemia Exacerbating Factors diet 08/28/2013 None hyperlipidemia Significant Family History hyperlipidemia 08/28/2013 None hyperlipidemia Quality chronic 08/28/2013 None skin lesion Quality pigmented 02/16/2013 None skin lesion Onset and Resolution gradual in onset 02/16/2013 None skin lesion Severity mild 02/16/2013 None skin lesion Triggers sun exposure 02/16/2013 None skin lesion Location in the lower neck area 02/16/2013 on the right hyperlipidemia Onset of Symptom during adulthood 02/14/2013 None hyperlipidemia Severity moderate 02/14/2013 None hyperlipidemia Triggers no known associated factors 02/14/2013 None hyperlipidemia Exacerbating Factors diet 02/14/2013 None hyperlipidemia Pertinent Findings Denies insulin resistance 02/14/2013 None hyperlipidemia Pertinent Findings Denies nausea 02/14/2013 None hyperlipidemia Pertinent Findings Denies obesity 02/14/2013 None hyperlipidemia Pertinent Findings Denies polyuria 02/14/2013 None hyperlipidemia Pertinent Findings Denies weight loss 02/14/2013 None hyperlipidemia Quality acute 02/14/2013 None hyperlipidemia Quality increased LDL 02/14/2013 None hyperlipidemia Significant Family History hyperlipidemia 02/14/2013 None hyperlipidemia Significant Family History cardiac disease 02/14/2013 None hoarseness Quality acute 07/25/2012 None hoarseness Onset and Resolution sudden in onset 07/25/2012 None hoarseness Pertinent Findings cough 07/25/2012 None hoarseness Onset of Symptom 1 weeks ago 07/25/2012 None skin lesion Quality scabbed 07/25/2012 None skin lesion Quality red 07/25/2012 None skin lesion Onset of Symptom 10 days ago 07/25/2012 burned right forearm on grill hoarseness Limitation on Activities does not limit communication 07/25/2012 None hoarseness Frequency of Episodes increasing 07/25/2012 None hoarseness Triggers no known associated factors 07/25/2012 None hoarseness Pertinent Findings Denies facial pain 07/25/2012 None skin lesion Quality raised 01/26/2012 None skin lesion Quality scabbed 01/26/2012 None skin lesion Quality worsening 01/26/2012 None skin lesion Quality firm 01/26/2012 None skin lesion Severity mild 01/26/2012 None skin lesion Triggers no known associated factors 01/26/2012 None skin lesion Alleviating Factors no alleviating factors 01/26/2012 None skin lesion Pertinent Findings Denies cough 01/26/2012 None skin lesion Location diffusely 01/26/2012 None skin lesion Onset of Symptom 2 weeks ago 01/26/2012 None skin lesion Location diffusely 09/14/2011 None skin lesion Quality acute 09/14/2011 None skin lesion Quality firm 09/14/2011 None skin lesion Quality worsening 09/14/2011 None skin lesion Severity mild 09/14/2011 None skin lesion Triggers no known associated factors 09/14/2011 None skin lesion Alleviating Factors no alleviating factors 09/14/2011 None skin lesion Pertinent Findings Denies cough 09/14/2011 None cough Quality dry None cough Onset and Resolution ongoing 09/08/2011 states it has been ongoing for long time new lesion Location-Major on the chest 09/08/2011 None dyspnea Quality shortness of breath 09/08/2011 None dyspnea Limitation on Activities does not limit activities 09/08/2011 None dyspnea Pertinent Findings Denies back pain 09/08/2011 None dyspnea Pertinent Findings Denies palpitations 09/08/2011 None dyspnea Pertinent Findings Denies somnolence 09/08/2011 but he has to take a sleeping pill to sleep Advance Directives No Advance Directive data Encounters Encounter Performer Location Codes Date ( [id number] EST. PATIENT, LEVEL IV Diagnosis: Mixed hyperlipidemia[ICD10: E78.2] Diagnosis: Vitamin D deficiency, unspecified[ICD10: E55.9] Diagnosis: Personal history of malignant neoplasm of prostate[ICD10: Z85.46] Babs Morris MD, [facility] CPT-4: 22754 09/08/2017 ([id number]) 71665 EST. PATIENT, LEVEL IV Diagnosis: Mixed hyperlipidemia[ICD10: E78.2] Diagnosis: Vitamin D deficiency, unspecified[ICD10: E55.9] Diagnosis: Actinic keratosis[ICD10: L57.0] Babs Morris MD, [facility] CPT- 4: 38620 03/07/2017 ([id number]) PER PM REEVAL EST PAT 65+ YR Diagnosis: Encounter for general adult medical examination without abnormal findings[ICD10: Z00.00] Diagnosis: Inflamed seborrheic keratosis[ICD10: L82.0] Babs Morris MD, [facility] CPT-4: 93827 09/07/2016 ([id number]) PER PM REEVAL EST PAT 65+ YR Diagnosis: Encounter for general adult medical examination without abnormal findings[ICD10: Z00.00] Babs Morris MD, [facility] CPT-4: 11856 03/08/2016 ([id number]) PER PM REEVAL EST PAT 65+ YR Diagnosis: Encounter for general adult medical examination with abnormal findings[ICD10: Z00.01] Diagnosis: Encounter for immunization[ICD10: Z23] Babs Morris MD, [facility] CPT-4: 58841 09/08/2015 ([id number]) PER PM REEVAL EST PAT 65+ YR Diagnosis: Routine medical exam[ICD9: V70.0] Babs Morris MD, [facility] CPT-4: 39754 10/02/2014 ([id number]) 84811 EST. PATIENT, LEVEL IV Diagnosis: Elevated PSA[ICD9: 790.93] Diagnosis: HYPERLIPIDEMIA[ICD9: 272.4] Babs Morris MD, [facility] CPT- 4: 87508 08/28/2013 ([id number]) 43620 EST. PATIENT, LEVEL IV Diagnosis: HYPERLIPIDEMIA[ICD9: 272.4] Diagnosis: SKIN DISORDER[ICD9: 709.9] Diagnosis: Elevated PSA measurement[ICD9: 790.93] Diagnosis: HEARING LOSS[ICD9: 389.9] Babs Morris MD, [facility] CPT-4: 54737 02/14/2013 ([id number]) 22146 EST. PATIENT, LEVEL III Diagnosis: ACUTE URI[ICD9: 465.9] Marlen Morris MD, [facility] CPT-4: 60175 07/25/2012 ([id number]) 57475 EST. PATIENT, LEVEL IV Diagnosis: Renal insufficiency[ICD9: 593.9] Diagnosis: HEARING LOSS[ICD9: 389.9] Babs Morris MD, [facility] CPT-4: 75043 01/26/2012 ([id number]) OFFICE VISIT, NEW - LEVEL 4 Diagnosis: Lumbago[ICD9: 724.2] Diagnosis: Cough[ICD9: 786.2] Diagnosis: PITYRIASIS VERSICOLOR[ICD9: 111.0] Diagnosis: Overweight[ICD9: 278.02] Diagnosis: Skin lesions, generalized[ICD9: 709.9] [facility] CPT-4: 03729 09/08/2011 Plan of Care Planned Activity Notes Codes Status Date Visit Plan: Hyperlipidemia - monitor labs - pt has been able to adjust his diet and improve his cholesterol without medication. Hx of skin cancer - no new lesions today- monitor - call if new skin changes occur. Prostate cancer - keep appts with [facility] for intermittent monitoring. Vitamin D deficiency - repeat labs today. 09/08/2017 Patient Education: Patient Medication Summary Completed 09/08/2017 Care Plan: Comp Metabolic Pending 09/08/2017 Care Plan: Lipid Pending 09/08/2017 Care Plan: Vitamin D 25 Oh Pending 09/08/2017 Care Plan: Tsh Pending 09/08/2017 Care Plan: Cbc With Differential Pending 09/08/2017 Appointment: Babs Morris WPtel: [phone] [facility] (15 min) Moderate 08/29/2017 Visit Plan: Hyperlipidemia - pt has been counseled about appropriate diet, exercise, and need for low fat food choices. I have discussed the need for the patient to take medications as prescribed. If the patient has negative side effects from the medication, they are to CALL the office and not abruptly discontinue the medication without discussion with a practitioner in the office. We will check labs in 3-6 months for follow up on the patient's chronic medical problem and to assure normal liver response to medications. Actinic keratosis - rx for efudex 03/07/2017 Appointment: Babs Morris WPtel: [phone] [facility] (15 min) Moderate 03/07/2017 Patient Education: Patient Medication Summary Completed 03/07/2017 Visit Plan: Well Adult - pt was counseled about diet, exercise, and encouraged to follow a heart healthy diet and increase activity level. The patient was instructed to RTC yearly for well adult exams and PRN for acute illnesses. The pt was also instructed to have yearly labs for check of cholesterol, thyroid, chem panel, CBC, and renal functioning. 09/07/2016 [phone] [place] (15 min) Moderate 09/07/2016 Patient Education: Patient Medication Summary Completed 09/07/2016 Visit Plan: Well Adult - pt was counseled about diet, exercise, and encouraged to follow a heart healthy diet and increase activity level. The patient was instructed to RTC yearly for well adult exams and PRN for acute illnesses. The pt was also instructed to have yearly labs for check of cholesterol, thyroid, chem panel, CBC, and renal functioning. pt to be seen by dr. mauricio for removal of skin lesion pt to see dr. goff for removal of hearing aide cushion from ear. 03/08/2016 Appointment: Babs Morris WPtel: [phone] [facility] (15 min) Moderate 03/08/2016 Patient Education: Patient Medication Summary Completed 03/08/2016 Visit Plan: Well Adult - pt was counseled about diet, exercise, and encouraged to follow a heart healthy diet and increase activity level. The patient was instructed to RTC yearly for well adult exams and PRN for acute illnesses. The pt was also instructed to have yearly labs for check of cholesterol, thyroid, chem panel, CBC, and renal functioning. prevnar 13 shot today 09/08/2015 Patient Education: Patient Medication Summary Completed 09/08/2015 Appointment: Nurse Visit 10/24/2014 Visit Plan: Wound Instructions - Pt was instructed to keep the wound clean, wash with antibacterial soap, use triple antibiotic ointment, call if redness, pustular drainage, or any other acute concerns. Pt to rtc in 10 days for removal of sutures- skin sent for pathology 10/15/2014 Appointment: Babs Morris WPtel: [facility] Surgical Procedure 10/15/2014 Patient Education: Patient Medication Summary Completed 10/15/2014 Visit Plan: Well Adult - pt was counseled about diet, exercise, and encouraged to follow a heart healthy diet and increase activity level. The patient was instructed to RTC yearly for well adult exams and PRN for acute illnesses. The pt was also instructed to have yearly labs for check of cholesterol, thyroid, chem panel, CBC, and renal functioning. Pt to rtc for removal of lesion on left upper arm. 10/02/2014 Appointment: Babs Morris WPtel: [facility] Follow up 10/02/2014 Patient Education: Patient Medication Summary Completed 10/02/2014 Appointment: Babs Morris WPtel: [facility] Follow up 09/27/2014 Visit Plan: Referral to Dr. Chris due to elevated PSA - number has risen from 5.3 to 6.9 over the past 6 months. Hyperlipidemia - pt has been counseled about appropriate diet, exercise, and need for low fat food choices. I have discussed the need for the patient to take fish oil. If the patient has negative side effects from the medication, they are to CALL the office and not abruptly discontinue the medication without discussion with a practicioner in the office. We will check labs in 3-6 months for follow up on the patient's chronic medical problem and to assure normal liver response to medications. 08/28/2013 Appointment: [phone] [facility] 08/28/2013 Patient Education: Patient Medication Summary Completed 08/28/2013 Visit Plan: Wound Instructions - Pt was instruced to keep the wound clean, wash with antibacterial soap, use triple antibiotic ointment, call if redness, pustular drainage, or any other acute conerns. 02/16/2013 Patient Education: Patient Medication Summary Completed 02/16/2013 Visit Plan: Hyperlipidemia - pt has been counseled about appropriate diet, exercise, and need for low fat food choices. I have discussed the need for the patient to take medications as prescribed. If the patient has negative side effects from the medication, they are to CALL the office and not abruptly discontinue the medication without discussion with a practicioner in the office. We will check labs in 3-6 months for follow up on the patient's chronic medical problem and to assure normal liver response to medications. Darkly pigmented abnormal lesion of right neck/shoulder - recommended removal ROSANNE due to nature of new dark lesion. Recommended pt to start exercise, walking a mile a day, then increase up to 2 miles daily for more opimal health as he is hesitant to take statins due to history of myalgia. Mild elevation of psa - recommended pt to have repeat testing in 6 months. Hearing loss - referral to licensed mass real estate appraiser at Dr. Goff's office 02/14/2013 Appointment: [phone] [place] Follow up 02/14/2013 Patient Education: Patient Medication Summary Completed 02/14/2013 Patient Education: Patient Medication Summary Completed 02/12/2013 Visit Plan: URI - Pt advised to increase fluids, vitamin C. Discussed natural and expected course of this diagnosis and need to alert me if symtpoms do not follow expected course, or if any worse. RX sent to patient' s pharmacy to start if symptoms persist in the next 3-4 days Burn right forearm- healing-no s/s of infection-leave open to air-call for s/s of infection 07/25/2012 Appointment: [phone] [facility] 07/25/2012 Patient Education: Patient Medication Summary Completed 07/25/2012 Visit Plan: Renal insufficiency - discussed the pt's elevated creatinine and lowered GFR. I have recommended and eval by a concrete pump operator helper to review the patient's case. 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 Per her report, his mom told of a time that he was so sick that the doctor told her to prepare for him to pass, he had a severe ear/upper respiratory infection, and was sick and weak for months after he finally recovered from his illness when he was a child. I have informed Judge Proctor that he should not take antiinflammatories, NSAIDS, of any type for pain, if he needs medication, it should be tylenol based. I have also informed him to make sure that if he is ever given an antibiotic that he informs the doctor that he has decreased kidney function. The pt and his vocalized understanding. Actinic Keratosis - wound Instructions - Pt was instruced to keep the wound clean, wash with antibacterial soap, use triple antibiotic ointment, call if redness, pustular drainage, or any other acute conerns. We also discussed that he needs to see the licensed mass real estate appraiser in [place] for a hearing screen. We discussed alcohol intake, I reminded him that as we age, our bodies produce less of the enzyme needed to metabolize alcohol and despite our apparent tolerance, the alcohol lasts longer in our systems that we realize, and he needs to decrease his consumption of alcohol in the evenings to one glass. 01/26/2012 Appointment: [phone] [facility] 01/26/2012 Patient Education: Patient Medication Summary Completed 01/26/2012 Appointment: Marlen Cherry WPtel: [phone] [phone] Other 09/24/2011 Patient Education: Patient Medication Summary Completed 09/24/2011 Appointment: Dilip Marlen WPtel: [phone] Follow up 09/23/2011 Visit Plan: Wound Instructions - Pt was instruced to keep the wound clean, wash with antibacterial soap, use triple antibiotic ointment, call if redness, pustular drainage, or any other acute conerns. right chest wall - one lesion cauterized - [id number] left deltoid - 1 lesion excised with 8mmpunch biopsy 3 sutures left jaw 1 lesion 8mm punch biopsy 3 sutures right scapular lesion - 8mm punch, 2 sutures right mid back 8mm punch 2 sutures middle lower back 8 mm punch 2 sutures 09/14/2011 Appointment: Babs Morris WPtel: [facility] Surgical Procedure 09/14/2011 Patient Education: Patient Medication Summary Completed 09/14/2011 Visit Plan: Well Adult - pt was counseled about diet, exercise, and encouraged to follow a heart healthy diet and increase acrtivity level. The patient was instructed to RTC yearly for well adult exams and PRN for acute illnesses. The pt was also instructed to have yearly labs for check of cholesterol, thyroid, chem panel, CBC, and renal functioning. Cerumen Impaction - The impacted cerumen was removed with the use of the ear currette. The patient tolerated the procedure without incident and had improvement in hearing. A VERY large amount of dark wax was removed by the practicioner due to the wax being more complicated to remove, and staff was needed to assit the removal of the wax by holding the ear, and keepig patient stabilized during the removal process. Pt had multiple different issues mentioned in clinic today. I spent and extensive amount of time in the patient's room today. Hearing Loss - I have recommended that the patient have an audiology evaluation by Mrs. Cheung at [facility]. He had improvement in his hearing today, but not as much as would be expected after the massive amount of cerumen removed from his ears today. Pityriasis Versicolor - Rx for ketaconazole shampoo given to the pt today. He is to use as directed. Seborrheic keratosis - irritated of right chest wall, will remove with electrocautery at a later date. Skin lesions - uncertain eitiology - lesion on left cheek - may be a Lentigo - will have pt RTC for biopsy. Lesion on left deltoid - recommend removal, may be a Nadeen K, but it has an unusual appearance and I would feel more comfortable with a biopsy to make sure that it is not a basal cell or squamous cell with an overlying plaque. Pt to RTC soon for removal of the lesions. Back pain - recommended arches in his shoes - he has VERY high arches, has clawing of his toes and this may help alleviate his back pain. Cough - uncertain eitiology - monitor. Overweight - pt aware of the weight causing a problem with fatigue, dyspnea - recommended to start exercise program and cut back on night-time alcohol consumption and also recommended caloric restriction/monitoring. 09/08/2011 Appointment: Babs Morris WPtel: [address] [place] [id number] New Patient 09/08/2011 Patient Education: Patient Medication Summary Completed 09/08/2011 Instructions Comment watch the skin on the right lower jaw below right ear. . Well Adult - pt was counseled about diet, exercise, and encouraged to follow a heart healthy diet and increase activity level. The patient was instructed to RTC yearly for well adult exams and PRN for acute illnesses. The pt was also instructed to have yearly labs for check of cholesterol, thyroid, chem panel, CBC, and renal functioning. prevnar 13 shot today . Renal insufficiency - discussed the pt's elevated creatinine and lowered GFR. I have recommended and eval by a concrete pump operator helper to review the patient's case. 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 Per her report, his mom told of a time that he was so sick that the doctor told her to prepare for him to pass, he had a severe ear/upper respiratory infection, and was sick and weak for months after he finally recovered from his illness when he was a child. I have informed Judge Proctor that he should not take antiinflammatories, NSAIDS , of any type for pain, if he needs medication, it should be tylenol based. I have also informed him to make sure that if he is ever given an antibiotic that he informs the doctor that he has decreased kidney function. The pt and his vocalized understanding. Actinic Keratosis - wound Instructions - Pt was instruced to keep the wound clean, wash with antibacterial soap, use triple antibiotic ointment, call if redness, pustular drainage, or any other acute conerns. We also discussed that he needs to see the licensed mass real estate appraiser in [place] for a hearing screen. We discussed alcohol intake, I reminded him that as we age, our bodies produce less of the enzyme needed to metabolize alcohol and despite our apparent tolerance, the alcohol lasts longer in our systems that we realize, and he needs to decrease his consumption of alcohol in the evenings to one glass. . URI - Pt advised to increase fluids, vitamin C. Discussed natural and expected course of this diagnosis and need to alert me if symtpoms do not follow expected course, or if any worse. RX sent to patient's pharmacy to start if symptoms persist in the next 3-4 days Burn right [id number] s/s of infection-leave open to air-call for s/s of infection neosporin to the left ear . Well Adult - pt was counseled about diet, exercise, and encouraged to follow a heart healthy diet and increase activity level. The patient was instructed to RTC yearly for well adult exams and PRN for acute illnesses. The pt was also instructed to have yearly labs for check of cholesterol, thyroid, chem panel, CBC, and renal functioning. Pt to rtc for removal of lesion on left upper arm. . Wound Instructions - Pt was instructed to keep the wound clean, wash with antibacterial soap, use triple antibiotic ointment, call if redness, pustular drainage, or any other acute concerns. Pt to rtc in 10 days for removal of sutures- skin sent for pathology . Well Adult - pt was counseled about diet, exercise, and encouraged to follow a heart healthy diet and increase activity level. The patient was instructed to RTC yearly for well adult exams and PRN for acute illnesses. The pt was also instructed to have yearly labs for check of cholesterol, thyroid, chem panel, CBC, and renal functioning. . Well Adult - pt was counseled about diet, exercise, and encouraged to follow a heart healthy diet and increase activity level. The patient was instructed to RTC yearly for well adult exams and PRN for acute illnesses. The pt was also instructed to have yearly labs for check of cholesterol, thyroid, chem panel, CBC, and renal functioning. pt to be seen by dr. mauricio for removal of skin lesion pt to see dr. goff for removal of hearing aide cushion from ear. . Wound Instructions - Pt was instruced to keep the wound clean, wash with antibacterial soap, use triple antibiotic ointment, call if redness, pustular drainage, or any other acute conerns. right chest wall - one lesion cauterized - nadeen-k left deltoid - 1 lesion excised with 8mmpunch biopsy 3 sutures left jaw 1 lesion 8mm punch biopsy 3 sutures right scapular lesion - 8mm punch, 2 sutures right mid back 8mm punch 2 sutures middle lower back 8 mm punch 2 sutures Recommended appt with Dr. Perez - pt to call for appt due to complexity of his schedule. Pt recommended to start on lower fat diet and to increase exercise.. Referral to Dr. Perez due to elevated PSA - number has risen from 5.3 to 6.9 over the past 6 months. Hyperlipidemia - pt has been counseled about appropriate diet, exercise, and need for low fat food choices. I have discussed the need for the patient to take fish oil. If the patient has negative side effects from the medication, they are to CALL the office and not abruptly discontinue the medication without discussion with a practicioner in the office. We will check labs in 3-6 months for follow up on the patient's chronic medical problem and to assure normal liver response to medications. efudex - cream - use twice daily on the skin lesions that are white on the left ear, arms, legs - use for 10 days - then stop and use neosporin on the lesions until they heal . Hyperlipidemia - pt has been counseled about appropriate diet, exercise, and need for low fat food choices. I have discussed the need for the patient to take medications as prescribed. If the patient has negative side effects from the medication, they are to CALL the office and not abruptly discontinue the medication without discussion with a practitioner in the office. We will check labs in 3-6 months for follow up on the patient's chronic medical problem and to assure normal liver response to medications. Actinic keratosis - rx for efudex . Hyperlipidemia - monitor labs - pt has been able to adjust his diet and improve his cholesterol without medication. Hx of skin cancer - no new lesions today- monitor - call if new skin changes occur. Prostate cancer - keep appts with [facility] for intermittent monitoring. Vitamin D deficiency - repeat labs today. . Wound Instructions - Pt was instruced to keep the wound clean, wash with antibacterial soap, use triple antibiotic ointment, call if redness, pustular drainage, or any other acute conerns. . Well Adult - pt was counseled about diet, exercise, and encouraged to follow a heart healthy diet and increase acrtivity level. The patient was instructed to RTC yearly for well adult exams and PRN for acute illnesses. The pt was also instructed to have yearly labs for check of cholesterol, thyroid, chem panel, CBC, and renal functioning. Cerumen Impaction - The impacted cerumen was removed with the use of the ear currette. The patient tolerated the procedure without incident and had improvement in hearing. A VERY large amount of dark wax was removed by the practicioner due to the wax being more complicated to remove, and staff was needed to assit the removal of the wax by holding the ear, and keepig patient stabilized during the removal process. Pt had multiple different issues mentioned in clinic today. I spent and extensive amount of time in the patient's room today. Hearing Loss - I have recommended that the patient have an audiology evaluation by Mrs. Cheung at [facility]. He had improvement in his hearing today, but not as much as would be expected after the massive amount of cerumen removed from his ears today. Pityriasis Versicolor - Rx for ketaconazole shampoo given to the pt today. He is to use as directed. Seborrheic keratosis - irritated of right chest wall, will remove with electrocautery at a later date. Skin lesions - uncertain eitiology - lesion on left cheek - may be a Lentigo - will have pt RTC for biopsy. Lesion on left deltoid - recommend removal, may be a Nadeen K, but it has an unusual appearance and I would feel more comfortable with a biopsy to make sure that it is not a basal cell or squamous cell with an overlying plaque. Pt to RTC soon for removal of the lesions. Back pain - recommended arches in his shoes - he has VERY high arches, has clawing of his toes and this may help alleviate his back pain. Cough - uncertain eitiology - monitor. Overweight - pt aware of the weight causing a problem with fatigue, dyspnea - recommended to start exercise program and cut back on night-time alcohol consumption and also recommended caloric restriction/monitoring. . Hyperlipidemia - pt has been counseled about appropriate diet, exercise, and need for low fat food choices. I have discussed the need for the patient to take medications as prescribed. If the patient has negative side effects from the medication, they are to CALL the office and not abruptly discontinue the medication without discussion with a practicioner in the office. We will check labs in 3-6 months for follow up on the patient's chronic medical problem and to assure normal liver response to medications. Darkly pigmented abnormal lesion of right neck/shoulder - recommended removal ROSANNE due to nature of new dark lesion. Recommended pt to start exercise, walking a mile a day, then increase up to 2 miles daily for more opimal health as he is hesitant to take statins due to history of myalgia. Mild elevation of psa - recommended pt to have repeat testing in 6 months. Hearing loss - referral to licensed mass real estate appraiser at Dr. Goff's office
--- OUTSIDE RECORDS SUMMARY | 2018-04-07 18:14 | XMS REPORT | Continuity of Care Document ---
Author Author [facility] Organization [facility] Address Unknown Phone Unavailable Allergies Active Description Code Type Severity Reaction Onset Reported/Identified Relationship to Patient Clinical Status Yes No Known Drug Allergies [id number] Drug Allergy Unknown N/A 01/22/2016 Medications There is no data. Problems Date Dx Coded Attending Type Code Diagnosis Diagnosed By 08/08/2009 Ot 569.0 ANAL RECTAL POLYP 08/08/2009 Ot V67.09 SURGERY FOLLOW-UP, OTHER SURGERY 11/16/2013 GHULAM HILL MD Ot 185 MALIGN NEOPL PROSTATE 11/16/2013 GHULAM HILL MD Ot V16.0 FAMILY HX-GI MALIGNANCY 11/16/2013 GHULAM HILL MD Ot V76.51 SCREEN MAL NEOP-COLON 01/24/2014 SHEA AIKEN, TAYLOR E Ot 185 MALIGN NEOPL PROSTATE 01/22/2016 Ot 185 MALIGN NEOPL PROSTATE 01/22/2016 LORE AIKEN, AMY Tovar Ot L98.9 DISORDER OF THE SKIN AND SUBCUTANEOUS TI 01/22/2016 LORE AIKEN, AMY Tovar Ot Z01.818 ENCOUNTER FOR OTHER PREPROCEDURAL EXAMIN 01/23/2016 Ot 275.40 CALCIUM METAB DISORD,NOS 01/23/2016 Ot 285.21 ANEMIA IN CHRONIC KIDNEY DISEASE 01/23/2016 Ot 585.3 CHRONIC KIDNEY DISEASE, STAGE III (MODER 01/23/2016 Ot 599.70 HEMATURIA, UNSPECIFIED 01/23/2016 ARMEN FARMER MD Ot 185 MALIGN NEOPL PROSTATE 01/23/2016 ARMEN FARMER MD Ot 573.8 LIVER DISORDERS NEC 01/23/2016 ARMEN FARMER MD Ot 753.10 CYSTIC KIDNEY DISEASE, UNSPECIFIED 01/23/2016 ARMEN FARMER MD Ot V81.5 SCREEN FOR NEPHROPATHY 01/23/2016 GHULAM HILL MD Ot V72.84 EXAM PRE-OPERATIVE NOS 01/23/2016 Ot 185 MALIGN NEOPL PROSTATE 01/23/2016 LORE AIKEN, AMY Tovar Ot 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 01/23/2016 LORE AIKEN, AMY Tovar Ot L57.0 ACTINIC KERATOSIS 01/23/2016 LORE AIKEN, AMY Tovar Ot L82.1 OTHER SEBORRHEIC KERATOSIS 02/11/2016 LORE AIKEN, AMY Tovar Ot 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 02/11/2016 LORE AIKEN, AMY Tovar Ot L82.1 OTHER SEBORRHEIC KERATOSIS 07/01/2016 MARISOL HARTMANN MD Ot I44.4 LEFT ANTERIOR FASCICULAR BLOCK 07/01/2016 MARISOL HARTMANN MD Ot I45.10 UNSPECIFIED RIGHT BUNDLE-BRANCH BLOCK 07/01/2016 MARISOL HARTMANN MD Ot I95.9 HYPOTENSION, UNSPECIFIED 07/01/2016 MARISOL HARTMANN MD Ot R94.31 ABNORMAL ELECTROCARDIOGRAM [ECG] [EKG] 07/01/2016 MARISOL HARTMANN MD Ot I44.4 LEFT ANTERIOR FASCICULAR BLOCK 07/01/2016 MARISOL HARTMANN MD Ot I45.10 UNSPECIFIED RIGHT BUNDLE-BRANCH BLOCK 07/01/2016 MARISOL HARTMANN MD Ot I95.9 HYPOTENSION, UNSPECIFIED 07/01/2016 MARISOL HARTMANN MD Ot R94.31 ABNORMAL ELECTROCARDIOGRAM [ECG] [EKG] 07/02/2016 MARISOL HARTMANN MD Ot I44.4 LEFT ANTERIOR FASCICULAR BLOCK 07/02/2016 MARISOL HARTMANN MD Ot I45.10 UNSPECIFIED RIGHT BUNDLE-BRANCH BLOCK 07/02/2016 MARISOL HARTMANN MD Ot I95.9 HYPOTENSION, UNSPECIFIED 07/02/2016 MARISOL HARTMANN MD Ot R94.31 ABNORMAL ELECTROCARDIOGRAM [ECG] [EKG] 07/19/2016 MARISOL HARTMANN MD Ot I44.4 LEFT ANTERIOR FASCICULAR BLOCK 07/19/2016 MARISOL HARTMANN MD Ot I45.10 UNSPECIFIED RIGHT BUNDLE-BRANCH BLOCK 07/19/2016 MARISOL HARTMANN MD Ot I95.9 HYPOTENSION, UNSPECIFIED 07/19/2016 MARISOL HARTMANN MD Ot R94.31 ABNORMAL ELECTROCARDIOGRAM [ECG] [EKG] 02/15/2018 Ot 275.40 CALCIUM METAB DISORD,NOS 02/15/2018 Ot 285.21 ANEMIA IN CHRONIC KIDNEY DISEASE 02/15/2018 Ot 585.3 CHRONIC KIDNEY DISEASE, STAGE III (MODER 02/15/2018 Ot 599.70 HEMATURIA, UNSPECIFIED 02/15/2018 ARMEN FARMER MD Ot 185 MALIGN NEOPL PROSTATE 02/15/2018 ARMEN FARMER MD Ot 573.8 LIVER DISORDERS NEC 02/15/2018 ARMEN FARMER MD Ot 753.10 CYSTIC KIDNEY DISEASE, UNSPECIFIED 02/15/2018 ARMEN FARMER MD Ot V81.5 SCREEN FOR NEPHROPATHY 02/15/2018 SERGIO AIKEN, GHULAM Newell Ot V72.84 EXAM PRE-OPERATIVE NOS 02/15/2018 Ot 185 MALIGN NEOPL PROSTATE 02/15/2018 MARISOL HARTMANN MD Ot I44.4 LEFT ANTERIOR FASCICULAR BLOCK 02/15/2018 MARISOL HARTMANN MD Ot I45.10 UNSPECIFIED RIGHT BUNDLE-BRANCH BLOCK 02/15/2018 MARISOL HARTMANN MD Ot I95.9 HYPOTENSION, UNSPECIFIED 02/15/2018 MARISOL HARTMANN MD Ot R94.31 ABNORMAL ELECTROCARDIOGRAM [ECG] [EKG] 03/10/2018 KEVIN SANDHU MD Ot G47.10 HYPERSOMNIA, UNSPECIFIED 03/10/2018 KEVIN SANDHU MD Ot I10 ESSENTIAL (PRIMARY) HYPERTENSION 03/10/2018 KEVIN SANDHU MD Ot I49.9 CARDIAC ARRHYTHMIA, UNSPECIFIED 03/10/2018 KEVIN SANDHU MD Ot R06.83 SNORING 03/15/2018 MARISOL HARTMANN MD Ot I44.4 LEFT ANTERIOR FASCICULAR BLOCK 03/15/2018 MARISOL HARTMANN MD Ot I45.10 UNSPECIFIED RIGHT BUNDLE-BRANCH BLOCK 03/15/2018 MARISOL HARTMANN MD Ot R42 DIZZINESS AND GIDDINESS 03/15/2018 MARISOL HARTMANN MD Ot I08.1 RHEUMATIC DISORDERS OF BOTH MITRAL AND T 03/15/2018 MARISOL HARTMANN MD Ot I44.4 LEFT ANTERIOR FASCICULAR BLOCK 03/15/2018 MARISOL HARTMANN MD Ot I45.10 UNSPECIFIED RIGHT BUNDLE-BRANCH BLOCK 03/15/2018 MARISOL HARTMANN MD Ot R42 DIZZINESS AND GIDDINESS Procedures There is no data. Results There is no data. Encounters ACCT No. Visit Date/Time Discharge Status Pt. Type Provider Facility Loc./Unit Complaint [id number] 03/09/2018 15:00:00 03/09/2018 15:30:00 DIS Outpatient KEVIN SANDHU MD [facility] SLEEP SLEEP DISTURBANCE [id number] 02/28/2018 11:00:00 02/28/2018 23:59:59 CLS Preadmit La ROBBINS MD [facility] RAD ATRIAL FLUTTER,PAROXYSMAL ,DIZZINESS,LAFB [id number] 02/15/2018 11:55:00 02/15/2018 23:59:59 CLS Outpatient MARISOL HARTMANN MD [facility] CARD RBBB,LAFB,DIZZINESS [id number] 02/15/2018 11:53:00 02/15/2018 23:59:59 CLS Outpatient MARISOL HARTMANN MD [facility] CARD RBBB,LAFB,DIZZINESS [id number] 06/30/2016 13:01:00 06/30/2016 23:59:59 CLS Outpatient MARISOL HARTMANN MD [facility] CARD RBBB, ABNORMAL EKG [id number] 01/23/2016 06:06:00 01/23/2016 09:29:00 DIS Outpatient AMY TORREZ MD [facility] SKIN LESIONS [id number] 01/22/2016 12:30:00 01/22/2016 12:35:00 DIS Outpatient AMY TORREZ MD [facility] PREOP SKIN LESIONS [id number] 10/26/2013 08:48:00 01/24/2014 00:01:00 DIS Outpatient TAYLOR VALDIVIA MD [facility] ONC [id number] 11/16/2013 07:29:00 11/16/2013 09:45:00 [facility] [id number] 11/15/2013 07:24:00 11/15/2013 23:59:59 CLS Outpatient GHULAM HILL MD [facility] PREOP SCREENING [id number] 09/20/2013 10:52:00 09/20/2013 23:59:59 CLS Outpatient ARMEN FARMER MD [facility] RAD PROSTATE CA [id number] 01/25/2014 00:00:00 Document Registration [id number] 08/29/2012 07:30:00 Document Registration [id number] 08/08/2009 07:28:00 Document Registration 0000 03/10/2017 08:18:55 03/10/2017 23:59:59 CLS Outpatient
== END | disposition home or self-care (01) ==
LOC: CATH 10:05
PROVIDERS: ATTEND Internal Medicine Cardiovascular Disease
DX: I48.92 Unspecified atrial flutter (principal); R00.2 Palpitations; R42 Dizziness and giddiness; I10 Essential (primary) hypertension; I45.2 Bifascicular block; J44.9 Chronic obstructive pulmonary disease, unspecified; G47.33 Obstructive sleep apnea (adult) (pediatric); I65.23 Occlusion and stenosis of bilateral carotid arteries; R94.31 Abnormal electrocardiogram [ECG] [EKG]; Z79.01 Long term (current) use of anticoagulants
CPT/HCPCS: 33282

== ENCOUNTER 2019-04-09 05:55 | Outpatient (CLI) | payer MEDICARE ==
[~2019-04-09] VITALS: Ht 182.9 cm; Wt 95.7 kg
[~2019-04-09 05:55] MED LIST changes: -LIDOCAINE 1% INJ 20 ML 20 ML VIAL ONE
[2019-04-09] MEDS ORDERED: VITA1CAP19 PO (13:35)
[2019-04-09] MEDS ORDERED: FOLI1TAB24 PO (13:35)
== END 2019-04-09 14:15 | disposition home or self-care (01) ==
LOC: PREOP 05:55
PROVIDERS: ATTEND Internal Medicine
DX: Z01.818 Encounter for other preprocedural examination (principal)

== ENCOUNTER 2019-04-13 07:22 | Day surgery (SDC) | payer MEDICARE ==
--- NOTE | 2019-04-03 20:23 | HISTORY AND PHYSICAL ---
DATE OF SERVICE: PANENDOSCOPY HISTORY AND PHYSICAL HISTORY OF PRESENT ILLNESS: The patient is a 78-year-old white male referred by Dr. Morris for diagnostic panendoscopy due to history of dysphagia as well as diarrhea. The patient reports for the past several years. He has had intermittent dysphagia to solids and intermittent heartburn. He has not been taking any medication. He reports 2 episodes where he had to regurgitate meat that likely had been not well chewed. He will have an episode once a month and it has been a little more frequent over the past six months where he will have a sticking sensation with solid food that he will sip little water to have relief of his symptoms. For a while he stated that he was taking iron and he was feeling weak and had dark stools at that time, it was prescribed by Dr. Morris. He had a loop recorder implanted, but it did not reveal any evidence for significant heart arrhythmia and they ended up discontinuing his metoprolol and he has felt better from an energy standpoint since this was stopped in 12/2018. He reports that he has lost about 7 pounds over the past 3 or 4 months. He denies associated abdominal pain, but he has noted some stool urgency typically after meals or after he eats out. He has had no reported antibiotic therapy and bowel habit change with stool urgency as intermittent. He has not had any reported bright red blood per rectum. He occasionally has had this in the past, although it has been sometime with known small hemorrhoid on his last colonoscopy in 2013, performed by myself. At that time, he had no evidence for neoplasia. PAST MEDICAL HISTORY: Significant for colon polyps, although he had no evidence for neoplasia on his last colonoscopy 5 years ago in 10/2013. He has had no previous EGD evaluation. He is currently taking an aspirin three times weekly as daily use caused significant senile purpura from his description, he has a history of obstructive sleep apnea on CPAP treatments and takes Benadryl 25 mg at bedtime for insomnia. He is on vitamin D, folic acid and another B complex vitamin. Reports no other dccg-vtb-vrkirar medication use. He has had past history of prostate cancer and only surgery was robotic prostatectomy roughly three or four years ago. PSAs have been zero since per his report. FAMILY HISTORY: Pertinent for a grandfather and grandmother in her 70s who succumbed to colon cancer. He had 2 uncles with colon cancer as well also later in life. SOCIAL HISTORY: He has a past history of smokeless tobacco use, but quit roughly 10 years ago with no past smoking history other than an occasional cigar. He has 1 to 2 mixed drinks most nights of the week. PHYSICAL EXAMINATION: GENERAL: Reveals a well-appearing white male in no acute distress. No evidence for pallor is noted. VITAL SIGNS: Weight 210 pounds, it is down 7 pounds from our last office weight in 10/2013. Blood pressure 122/76. HEENT: Unremarkable. Sclerae nonicteric. No pallor noted. CHEST: Clear to auscultation. CARDIOVASCULAR: Reveals a regular rate and rhythm without murmur, S3 or S4. ABDOMEN: Soft, supple without mass, organomegaly or tenderness. EXTREMITIES: Reveal no cyanosis, clubbing or edema. ASSESSMENT AND PLAN: The patient was set up for diagnostic panendoscopy due to history of dysphagia with weight loss and colonoscopy due to bowel habit change with stool urgency and loose stools, although he does not meet technical criteria for diarrhea. There is also a strong family history for colon cancer and has been well over 5 years since his last colonoscopy. I thank you for the referral. Job ID: [id number] DocumentID: [id number] Dictated Date: 03/29/2019 11:59:56 Registered Nurse Maternity Date: 03/29/2019 12:36:33 Dictated By: GHULAM HILL MD [facility]
[~2019-04-13] VITALS: Ht 182.9 cm; Wt 95.7 kg
[2019-04-13] VITALS (19 sets, daily range): BP systolic 89–170; BP diastolic 51–95
[~2019-04-13 07:22] MED LIST changes: +FOLI1TAB24 PO; +VITA1CAP19 PO
[2019-04-13] MEDS ORDERED: D5 LR IV SOLUTION 1,000 ML IV ONE (07:36)
[2019-04-13] MEDS ORDERED: D5 LR IV SOLUTION 1,000 ML IV STA (07:39)
[2019-04-13] MEDS ORDERED: HURRICAINE EXT TUBE (BENZOCAINE) XX PRN (07:45)
[2019-04-13] MEDS ORDERED: LIDOCAINE JELLY 2% 6 ML SYRINGE MM PRN (07:45)
[2019-04-13] MEDS ORDERED: fentaNYL INJECTION 100 MCG/2 ML AMP IVP ONE (07:45)
[2019-04-13] MEDS ORDERED: MIDAZOLAM 2 MG/2 ML (VERSED) VIAL IVP ONE (07:45)
[2019-04-13] MEDS ORDERED: fentaNYL INJECTION 100 MCG/2 ML AMP ONE (08:16)
[2019-04-13] MEDS ORDERED: LIDOCAINE JELLY 2% 6 ML SYRINGE ONE (08:16)
[2019-04-13] MEDS ORDERED: MIDAZOLAM 2 MG/2 ML (VERSED) VIAL ONE ×3 (08:17)
[2019-04-13] MEDS ORDERED: HURRICAINE EXT TUBE (BENZOCAINE) ONE (08:17)
[2019-04-13] MEDS ORDERED: PANT40TA3 PO (10:38)
--- NOTE | 2019-04-13 15:13 | OPERATIVE REPORT ---
DATE OF SERVICE: 04/13/2019 PANENDOSCOPY SUMMARY INDICATION FOR THE PROCEDURE: The patient underwent surveillance colonoscopy due to past history of colon polyps and diagnostic EGD due to history of dysphagia and weight loss. The patient was placed in left lateral decubitus position. Prior to undergoing colonoscopy, digital rectal evaluation was performed. Anal sphincter tone was normal. Perianal reflex was intact. There are some redundant perianal skin folds, possibly due to previous hemorrhoids, but no active internal or external hemorrhoids were noted. The prostate was surgically absent. No nodularity was noted. No other abnormalities were noted on digital inspection of the anal canal or distal rectal vault. The colonoscope was then inserted into the rectum and under direct visualization advanced to the cecum. The cecum was identified by identification of the ileocecal valve and cecal strap. Photographic documentation was obtained. A careful inspection was made as the colonoscope was withdrawn. The patient tolerated the procedure well and the quality of prep was good. FINDINGS: There was no evidence for internal or external hemorrhoids and the rectum was unremarkable. A moderate number of small to medium size sigmoid diverticulum were present without evidence for diverticulitis. Present in the proximal descending colon was a diminutive sessile polyp that was biopsied and ablated and submitted for histopathology with no blood loss. The splenic flexure, transverse colon, hepatic flexure, ascending colon and cecum were unremarkable. ASSESSMENT: 1. Diminutive proximal descending colonic polyp was removed via hot forceps as noted above. As long as there are no surprises on histopathology report, I would advocate repeat surveillance colonoscopy in five years considering family history. 2. Moderate diverticular disease confined to the sigmoid colon was present without evidence for diverticulitis. 3. There is surgical absence of the prostate with no nodularity being noted on digital evaluation of the rectal vault. We then proceeded with diagnostic EGD. The endoscope was inserted in the oral cavity and under direct visualization, the esophagus was intubated. The endoscope was passed down the esophagus through the stomach and second portion of the duodenum. A careful inspection was made as the endoscope was withdrawn. The patient tolerated the procedure well. FINDINGS: The posterior hypopharynx, epiglottis, true and false vocal folds and arytenoid aperture were unremarkable to visual inspection. The proximal and mid esophagus were unremarkable. The distal esophagus revealed some parenteral ulceration with evidence for small stricture. There appeared to be patency at the level of the lower esophageal sphincter ulceration, was pretty much confined at the Z-line only. There was no evidence for hiatal hernia. The cardia and fundus of the stomach were unremarkable. There is some mild antral erythema with a small duodenal bulb erosion. Biopsy was obtained from the antrum and submitted for Helicobacter. The second portion of the duodenum was unremarkable, but as was the pylorus and the pyloric channel. ASSESSMENT: LA grade D erosive esophagitis with stricturing, but no visible evidence to suggest malignancy was noted. Biopsies were obtained from the Z-line and then the patient underwent balloon dilatation to 60-[place] size/6 atmospheres with no pain and was discharged with stable vital signs voicing no complaints. The patient denies a history of heartburn symptoms, but dysphagia to solids. We discussed the fact that symptoms in regards to heartburn would not be admitted. 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 I took the liberty of calling out pantoprazole 40 mg to be taken daily #30, but no refills. He will need to obtain refills through his primary care provider, Dr. Morris. This discussion was had with his present as he was still likely under the influence of Versed. We will await histopathology report, but as long as there is no evidence for Day's change, which did not appear to be present to gross inspection, would only recommend EGD for recurrence of dysphagia. The patient did have one erosion of the duodenal bulb, most likely aspirin related. There was some mild erythema noted in the antrum, so biopsy was obtained for histopathology and Helicobacter evaluation. I thank you for the referral of this pleasant gentleman. Sincerely, Job ID: [id number] DocumentID: [id number] Dictated Date: 04/13/2019 11:22:35 Space Scheduler Date: 04/13/2019 15:12:47 Dictated By: GHULAM HILL MD
--- NOTE | 2019-04-24 21:30 | OPERATIVE REPORT ---
DATE OF SERVICE: ADDENDUM Colonoscopy that was done on the 04/13/2019. Dear Dr. Morris, This letter regards pathology report from Mr. Proctor's recent panendoscopy. His colon polyp was hyperplastic in nature. Because of family history I have recommended a 5-year surveillance colonoscopy interval again. His esophageal biopsy was compatible with short segment Day's. There was no evidence for dysplasia, so he should be at lower risk for esophageal cancer. He was started on pantoprazole 40 mg daily at the time of his procedure as he had some mild erosive changes and was advised because of Day's that he stay on this indefinitely. I have asked him to get refills through your office. In regards to other risk factor modification, he does not smoke, but is likely consuming alcohol in higher quantity than considered to be moderate. Advised that he at minimum decrease his alcohol intake to 2 ounces of scotch per day maximum or give it up altogether. Discussed need for surveillance EGD in 1 year and he has been placed on callback list by our office. I thank you for the referral of this pleasant gentleman. Job ID: [id number] DocumentID: [id number] Dictated Date: 04/24/2019 16:30:54 Marine [employer] Installer [employer] Servicer Date: 04/24/2019 21:30:07 Dictated By: GHULAM HILL MD [facility]
== END 2019-04-13 10:20 | disposition home or self-care (01) ==
LOC: ENDO 07:22
PROVIDERS: ATTEND Internal Medicine
DX: Z12.11 Encounter for screening for malignant neoplasm of colon (principal); K63.5 Polyp of colon; K22.10 Ulcer of esophagus without bleeding; K22.2 Esophageal obstruction; K31.89 Other diseases of stomach and duodenum; K57.30 Diverticulosis of large intestine without perforation or abscess without bleeding; R63.4 Abnormal weight loss; G47.33 Obstructive sleep apnea (adult) (pediatric); Z87.19 Personal history of other diseases of the digestive system; Z90.79 Acquired absence of other genital organ(s); Z85.46 Personal history of malignant neoplasm of prostate; Z87.891 Personal history of nicotine dependence; Z79.82 Long term (current) use of aspirin; Z80.0 Family history of malignant neoplasm of digestive organs
CPT/HCPCS: 88305

== ENCOUNTER → 2019-08-09 | Outpatient (CLI) | payer MEDICARE ==
[~2019-08-09] MED LIST changes: +PANT40TA3 PO
--- NOTE | 2019-08-09 12:29 | Diagnostic Imaging Report ---
INDICATION: Back pain. TIME OF EXAM: 11:54 a.m. FINDINGS: Curvature and alignment are normal. There is a prominent osteophyte laterally to the right in the mid thoracic spine. Vertebral body heights are well maintained. No fractures are seen. Paraspinous line is intact. IMPRESSION: Thoracic spondylosis. No acute bony abnormality is detected. Dictated by: Dictated on workstation # [id number]
== END ==
LOC: RAD 11:42
PROVIDERS: ATTEND Family Medicine
DX: M47.814 Spondylosis without myelopathy or radiculopathy, thoracic region (principal)
CPT/HCPCS: 72072

== ENCOUNTER 2020-05-14 05:26 | Outpatient (RCR) | payer MEDICARE ==
[~2020-05-14] VITALS: Ht 182 cm; Wt 95.4 kg
[~2020-05-14 05:26] MED LIST changes: +FOLI0.8C PO; -PANT40TA3 PO; +PANT40TA52 PO; -TRAM50TA2 PO; +TRM50T PO
== END 2020-05-14 09:24 | disposition home or self-care (01) ==
LOC: PREOP 05:26
PROVIDERS: ATTEND Internal Medicine
DX: Z01.812 Encounter for preprocedural laboratory examination (principal); Z20.828 Contact with and (suspected) exposure to other viral communicable diseases
CPT/HCPCS: 87635

== ENCOUNTER 2020-05-16 07:26 | Day surgery (SDC) | payer MEDICARE ==
--- NOTE | 2020-05-06 18:06 | HISTORY AND PHYSICAL ---
DATE OF SERVICE: EGD HISTORY AND PHYSICAL HISTORY OF PRESENT ILLNESS: The patient is a 79-year-old white male, referred for surveillance EGD. One year ago, he underwent EGD, which revealed evidence for erosive esophagitis with benign stricture formation. At that time, he was started on pantoprazole at bedtime. He is referred for surveillance EGD. He did not have evidence for Day's change, but there was a lot of background inflammation. The patient reports no dysphagia. He still has mild chronic cough that is nonproductive. Denies any problems of sore throats. Cough tends to be worse first thing in the morning, gets better as the day goes on. He is taking his pantoprazole at bedtime. He has had no reported heartburn type symptoms. PAST MEDICAL HISTORY: History of colon polyps. He has a personal history of prostate cancer and only reported surgery was robotic prostatectomy, roughly five years ago, reportedly unmeasurable PSA since. FAMILY HISTORY: Pertinent for grandfather and grandmother in her 70s who succumbed to colon cancer. He has had two uncles with colon cancer as well. His last colonoscopy was one year ago at which time, he had no evidence for neoplasia. Consideration for repeat colonoscopy in five years. PHYSICAL EXAMINATION: GENERAL: Reveals a white male, appears to be in no acute distress. VITAL SIGNS: Blood pressure 140/82, weight 204 pounds compared to a weight last year of 210 pounds. HEENT: Unremarkable. CHEST: Clear. CARDIOVASCULAR: Regular rate and rhythm without murmur, S3 or S4. ABDOMEN: Soft, supple without mass, organomegaly or tenderness. EXTREMITIES: Reveal no cyanosis, clubbing or edema. ASSESSMENT AND PLAN: The patient was set up for surveillance EGD due to past history of erosive esophagitis with stricture formation. I thank you for the referral of this pleasant gentleman. Job ID: [id number] DocumentID: [id number] Dictated Date: 04/24/2020 16:49:30 Home School Coordinator Date: 04/24/2020 17:41:41 Dictated By: GHULAM HILL MD
[2020-05-16] VITALS (9 sets, daily range): BP systolic 111–166; BP diastolic 53–91
[~2020-05-16] VITALS: Ht 182 cm; Wt 95.4 kg
[2020-05-16] MEDS ORDERED: D5 LR IV SOLUTION 1,000 ML IV ONE (07:35)
[2020-05-16] MEDS ORDERED: D5 LR IV SOLUTION 1,000 ML IV STA (07:36)
[2020-05-16] MEDS ORDERED: fentaNYL INJECTION 100 MCG/2 ML AMP IVP ONE (07:45)
[2020-05-16] MEDS ORDERED: MIDAZOLAM 5 MG/5 ML (VERSED) VIAL IV ONE (07:45)
[2020-05-16] MEDS ORDERED: LIDOCAINE JELLY 2% 6 ML SYRINGE MM PRN (07:45)
[2020-05-16] MEDS ORDERED: LIDOCAINE JELLY 2% 6 ML SYRINGE ONE (07:48)
[2020-05-16] MEDS ORDERED: fentaNYL INJECTION 100 MCG/2 ML AMP ONE (07:48)
[2020-05-16] MEDS ORDERED: MIDAZOLAM 5 MG/5 ML (VERSED) VIAL ONE (07:49)
--- NOTE | 2020-05-16 07:56 | Pre-Op Note & Conscious Sedat ---
Pre-Operative Progress Note H&P Reviewed The H&P was reviewed, patient examined and no changes noted. Date H&P Reviewed: May 16, 2020 Time H&P Reviewed: 07:56 Conscious Sedation Pre-Proced ASA Score 2 For ASA 3 and 4: Consider anesthesia and medical clearance. Also, for patients with a history of failed moderate sedation consider anesthesia. Airway Lungs Heart ASA score ASA 1: a normal healthy patient ASA 2: a patient with a mild systemic disease (mid diabetes, controlled hypertension, obesity ASA 3: a patient with a severe systemic disease that limits activity (angina, COPD, prior Myocardial infarction) ASA 4: a patient with an incapacitating disease that is a constant threat to life (CHF, renal failure) ASA 5: a moribund patient not expected to survive 24 hrs. (ruptured aneurysm) ASA 6: a declared brain- patient whose organs are being harvested. For emergent operations, add the letter E after the classification Mallampati Classification Grade 2 Sedation Plan Analgesia, Amnesia, Plan communicated to team members, Discussed options with patient/fam, Discussed risks with patient/fam The patient is an appropriate candidate to undergo the planned procedure, sedation, and anesthesia. The patient immediately re-assessed prior to indication. GHULAM HILL MD May 16, 2020 07:56
--- NOTE | 2020-05-16 16:17 | OPERATIVE REPORT ---
DATE OF SERVICE: EGD SUMMARY INDICATION FOR THE PROCEDURE: Erosive esophagitis with chronic cough. DESCRIPTION OF PROCEDURE: The patient was placed in the left lateral decubitus position. The endoscope was inserted in the oral cavity and under direct visualization, esophagus was intubated. Endoscope was passed down the esophagus through stomach and second portion of the duodenum. Careful inspection was made as the endoscope was withdrawn. The patient tolerated the procedure well. FINDINGS: The posterior pharynx, true and false vocal folds and arytenoid aperture were unremarkable to visual inspection. Proximal, mid and distal esophagus were unremarkable. Previous findings of erosive esophagitis were not present today. The Z line was distinct. There was no evidence for stricture formation and no obvious evidence to suggest Day's change. A biopsy was obtained and submitted for histopathology. The cardia, fundus, antrum, pylorus, pyloric channel and duodenal bulb were unremarkable. ASSESSMENT: Previous findings of erosive esophagitis, stricture formation have resolved. The patient does have a small sliding hiatal hernia. A biopsy from the GE junction is pending at the time of dictation. He is reassured by today's findings and advised to continue pantoprazole, considering his past history. I thank you for the referral. Job ID: [id number] DocumentID: [id number] Dictated Date: 05/16/2020 11:25:04 Event Set Up Specialist Date: 05/16/2020 16:17:00 Dictated By: GHULAM HILL MD
== END 2020-05-16 09:30 | disposition home or self-care (01) ==
LOC: ENDO 07:26
PROVIDERS: ATTEND Internal Medicine
DX: Z09 Encounter for follow-up examination after completed treatment for conditions other than malignant neoplasm (principal); K44.9 Diaphragmatic hernia without obstruction or gangrene; R05 Cough; Z86.010 Personal history of colon polyps; Z85.46 Personal history of malignant neoplasm of prostate; Z80.0 Family history of malignant neoplasm of digestive organs; Z87.19 Personal history of other diseases of the digestive system
CPT/HCPCS: 88305

== ENCOUNTER 2020-07-01 05:44 | Outpatient (RCR) | payer MEDICARE ==
[~2020-07-01] VITALS: Ht 182.9 cm; Wt 95.4 kg
== END 2020-07-01 13:50 | disposition home or self-care (01) ==
LOC: PREOP 05:44
PROVIDERS: ATTEND Specialist
DX: Z01.818 Encounter for other preprocedural examination (principal)

== ENCOUNTER 2020-07-04 07:50 | Day surgery (SDC) | payer MEDICARE ==
[~2020-07-04] VITALS: Ht 182.9 cm; Wt 95.4 kg
[2020-07-04] MEDS ORDERED: TROPICAMIDE 1% OPH SOLN (MYDRIACYL) 15 ML BTL OU PRN (08:00)
[2020-07-04] MEDS ORDERED: PHENYLEPHRINE 10% OPHTH (NEO-SYN) 5 ML BTL OU PRN (08:00)
[2020-07-04 08:13] VITALS: BP 123/73
[2020-07-04] MEDS: TETRACAINE 0.5% OPHTH SOLN 4 ML BTL (SINGLE DOSE ONLY) OU PRN ×2 (08:16→08:20)
[2020-07-04 08:45] VITALS: BP 123/73
--- NOTE | 2020-07-04 08:59 | Ophthalmologist Pre-Op Note ---
Pre-Operative Progress Note H&P Reviewed The H&P was reviewed, patient examined and no changes noted. Date H&P Reviewed: Jul 04, 2020 Time H&P Reviewed: 08:33 Pre-Op Dx Secondary Cataract, Right Eye CORTEZ AVENDANO MD Jul 04, 2020 08:59
--- NOTE | 2020-07-04 09:00 | Ophthalmology Operative Report ---
YAG Capsulotomy PREOPERATIVE DIAGNOSIS: Secondary Cataract Right Eye POSTOPERATIVE DIAGNOSIS: Secondary Cataract Right Eye PROCEDURE: YAG Capsulotomy, right eye SURGEON: Javed Avendano ANESTHESIA: Topical anesthesia COMPLICATIONS: None ESTIMATED BLOOD LOSS: Minimal DESCRIPTION OF PROCEDURE: After proper informed consent was obtained, the patient's, a 79 male, right eye received one drop of Tropicamide and one drop of Tetracaine. The patient was then placed at the YAG laser and using a power of [ 4.0] millijoules and [ 14] bursts were used to fashion a central capsulotomy. The patient tolerated the procedure well without complications. JAVED AVENDANO MD Jul 04, 2020 09:00
== END 2020-07-04 08:45 | disposition home or self-care (01) ==
LOC: SDC 07:50
PROVIDERS: ATTEND Specialist
DX: H26.491 Other secondary cataract, right eye (principal); M25.50 Pain in unspecified joint

== ENCOUNTER 2020-07-08 05:49 | Outpatient (RCR) | payer MEDICARE ==
[~2020-07-08] VITALS: Ht 182.9 cm; Wt 95.5 kg
[~2020-07-08 05:49] MED LIST changes: -FOLI1TAB24 PO; +FOLI1TAB33 PO
== END 2020-10-06 ==
LOC: PREOP 05:49
PROVIDERS: ATTEND Specialist
DX: Z01.812 Encounter for preprocedural laboratory examination (principal); H25.9 Unspecified age-related cataract

== ENCOUNTER 2020-07-30 05:33 | Outpatient (RCR) | payer MEDICARE ==
[~2020-07-30] VITALS: Ht 182 cm; Wt 95.4 kg
[~2020-07-30 05:33] MED LIST changes: +FOLI1TAB24 PO; -FOLI1TAB33 PO
== END 2020-07-30 11:32 | disposition home or self-care (01) ==
LOC: PREOP 05:33
PROVIDERS: ATTEND Specialist
DX: Z01.812 Encounter for preprocedural laboratory examination (principal); H26.9 Unspecified cataract; Z20.828 Contact with and (suspected) exposure to other viral communicable diseases
CPT/HCPCS: 87635

== ENCOUNTER 2020-08-01 06:30 | Day surgery (SDC) | payer MEDICARE ==
[~2020-08-01] VITALS: Ht 182 cm; Wt 95.4 kg
[2020-08-01] MEDS ORDERED: MOXIFLOXACIN OPHTH SOLN 5 MG/ML 0.3 ML SYRINGE OP ONE (06:45)
[2020-08-01] MEDS ORDERED: LIDOCAINE PF 1% 2 ML VIAL IR PRN (06:45)
[2020-08-01] MEDS ORDERED: POVIDONE (BETADINE) OPHTH SOLN 5% 30 ML OP ONE (06:45)
[2020-08-01] MEDS ORDERED: TIMOLOL MALEATE 0.5% 5 ML (TIMOPTIC) BTL OU PRN (06:45)
[2020-08-01] MEDS: TETRACAINE 0.5% OPHTH SOLN 4 ML BTL (SINGLE DOSE ONLY) OU PRN ×4 (06:59→07:15)
[2020-08-01] MEDS: PHENYLEPHRINE 10% OPHTH (NEO-SYN) 5 ML BTL OU SCH ×3 (07:05→07:15)
[2020-08-01] MEDS: TROPICAMIDE 1% OPH SOLN (MYDRIACYL) 15 ML BTL OP SCH ×3 (07:05→07:15)
[2020-08-01 07:10] VITALS: BP 127/89
[2020-08-01] MEDS ORDERED: MIDAZOLAM 2 MG/2 ML (VERSED) VIAL ONE (07:23)
--- NOTE | 2020-08-01 07:49 | Ophthalmologist Pre-Op Note ---
Pre-Operative Progress Note H&P Reviewed The H&P was reviewed, patient examined and no changes noted. Date H&P Reviewed: Aug 01, 2020 Time H&P Reviewed: 07:49 Pre-Op Dx Cataract, Left Eye CORTEZ AVENDANO MD Aug 01, 2020 07:49
--- NOTE | 2020-08-01 08:09 | Ophthalmology Operative Report ---
Cataract removal/placement IOL PREOPERATIVE DIAGNOSIS: Cataract Left Eye POSTOPERATIVE DIAGNOSIS: Cataract Left Eye PROCEDURE: Cataract removal and placement of posterior chamber implant, left eye SURGEON: Javed Avendano ANESTHESIA: Topical with sedation COMPLICATIONS: None ESTIMATED BLOOD LOSS: Minimal DESCRIPTION OF PROCEDURE: After proper informed consent was obtained, the patient, a 79 male, was taken to the Operating Room and the left eye was anesthetized with tetracaine. The left eye was then prepped and draped in the usual manner. A wire lid speculum was placed. A paracentesis was made at the left hand position. Preservative free lidocaine was injected into the anterior chamber followed by viscoelastic. A clear corneal incision was made in the temporal position. A capsulorrhexis was preformed and the central nuclear and cortical material were removed. The posterior capsule was polished and an Kenny 13.5 [id number] was placed into the capsular bag. The residual viscoelastic was aspirated and balanced saline solution was injected into the anterior chamber. Moxifloxacin was injected into the anterior chamber. The wound was checked and found to be water tight. The patient tolerated the procedure well without complications. JAVED AVENDANO MD Aug 01, 2020 08:09
[2020-08-01 08:20] VITALS: BP 168/92
[2020-08-01] MEDS ORDERED: acetaZOLAMIDE ER 500 MG CAP (DIAMOX SEQUELS) PO ONE (08:30)
--- NOTE | 2020-08-01 11:25 | Anesthesia-General Post-Op ---
MAC Patient Condition Mental Status/LOC: Same as Preop Cardiovascular: Satisfactory Nausea/Vomiting: Absent Respiratory: Satisfactory Pain: Controlled Complications: Absent Post Op Complications Complications None Follow Up Care/Instructions Patient Instructions None needed. Anesthesiology Discharge Order Discharge Order Patient is doing well, no complaints, stable vital signs, no apparent adverse anesthesia problems. No complications reported per nursing. GA ARREAGA CRNA Aug 01, 2020 11:25
== END 2020-08-01 08:20 | disposition home or self-care (01) ==
LOC: SDC 06:30
PROVIDERS: ATTEND Specialist
DX: H25.12 Age-related nuclear cataract, left eye (principal)
CPT/HCPCS: 66984; V2632

== ENCOUNTER → 2022-07-21 | Outpatient (RCR) | payer MEDICARE ==
[~2022-07-21] MED LIST changes: -FOLI1TAB24 PO; +FOLI1TAB33 PO
== END | disposition home or self-care (01) ==
PROVIDERS: ATTEND Family Medicine
DX: M62.830 Muscle spasm of back (principal); M62.838 Other muscle spasm

== ENCOUNTER 2022-08-20 10:18 | Outpatient (RCR) | payer MEDICARE | END 2022-08-21 | disposition home or self-care (01) | PROVIDERS: ATTEND Family Medicine | DX: M62.830 Muscle spasm of back (principal); M62.838 Other muscle spasm ==

== ENCOUNTER 2022-10-06 11:13 | Outpatient (RCR) | payer MEDICARE | END 2022-10-06 12:00 | disposition home or self-care (01) | PROVIDERS: ATTEND Family Medicine | DX: M62.830 Muscle spasm of back (principal); M62.838 Other muscle spasm ==

== ENCOUNTER → 2022-11-10 | Outpatient (CLI) | payer MEDICARE ==
[~2022-11-10] MED LIST changes: +GADOTERATE 0.5 MMOL/ML (CLARISCAN) 20 ML VIAL IV ONE
--- NOTE | 2022-11-10 08:23 | Diagnostic Imaging Report ---
PROCEDURE: MR imaging of the brain with and without contrast. TECHNIQUE: Multiplanar, multisequence MR imaging of the brain was performed with and without contrast. INDICATION: Dizzy spells. No prior studies are available for comparison. Ventricles and sulci are appropriate for the patient's age. There is moderate periventricular and subcortical white matter changes noted consistent with chronic microvascular ischemia. No diffusion restriction is identified to suggest acute ischemia. The normal expected flow-voids within the carotid siphons are seen. No acute intra-axial or extra-axial hemorrhage is detected. Corpus callosum is unremarkable. Sella and parasellar structures are unremarkable. No abnormal enhancement following contrast administration is identified. IMPRESSION: Chronic and senescent changes. No acute intracranial process is detected. Dictated by: Dictated on workstation # [id number]
== END ==
LOC: RAD 07:13
PROVIDERS: ATTEND Internal Medicine Cardiovascular Disease
DX: R42 Dizziness and giddiness (principal)
CPT/HCPCS: 70553